=== PATIENT | male | born 1955 | race Caucasian/White ===

== ENCOUNTER 2020-02-28 17:02 | Outpatient (CLI) | payer MEDICARE, SELFPAY ==
--- NOTE | 2020-02-28 | MR_ITS ---
WS: [id number] MRI BRAIN WITHOUT CONTRAST HISTORY: UNUSUAL CHANGE IN BEHAVIOR COMPARISON: None available. TECHNIQUE: Diffusion imaging, multiplanar T1, T2 and FLAIR imaging obtained. On the diffusion sequences there is a linear area of increased signal in the LEFT prieto radiata and in the posterior RIGHT frontal lobe. Very minimal increased signal on the ADC mapping with increased signal on the FLAIR sequence. There is additional confluent and patchy T2 and FLAIR signal hyperinten sities surrounding the ventricles and extending into the centrum semiovale ovale. Prior lacunar infar ct in the RIGHT liliana. Additional smaller lacunar infarcts in the frontal lobes. Mild atrophy is symmetric bilaterally. Ventricles and extra-axial spaces are normal. No inferior displacement of cerebellar tonsils. The sella turcica and pituitary gland are unremarkabl e. Dural venous sinuses and seneca-c[place] of [place] demonstrate no abnormality on this unenhanced studies. Paranasal sinuses: Clear. Mastoid air cells: Normal. Calvarium and scalp: Intact. MR/MR head wo con* [id number] IMPRESSION: 1. LEFT centrum semiovale and posterior RIGHT frontal lobe diffusion-weighted abnormalities. ADC map signal is mildly increased. Findings suggest these are n ot acute and probably greater than a-week-old. Suspect these are subacute lacun ar infarcts. 2. Extensive white matter disease and prior lacunar lungs. Small lacune in th e RIGHT liliana. More than expected for the patient's age. Differentials to consid er are long-standing hypertension, vasculitis and demyelination.
== END 2020-02-28 17:03 | disposition home or self-care (01) ==
LOC: RADSHAW 17:11
PROVIDERS: PCP Nurse Practitioner Family; Visit Provider Nurse Practitioner Family
DX: R46.89 Other symptoms and signs involving appearance and behavior (principal); R90.82 White matter disease, unspecified
CPT/HCPCS: 70551

== ENCOUNTER → 2020-03-26 11:46 | Outpatient (BNVA) | payer MEDICARE, SELFPAY | PROVIDERS: PCP Nurse Practitioner Family; Referring Provider Nurse Practitioner Family; Visit Provider Nurse Practitioner | DX: I63.9 Cerebral infarction, unspecified (principal) | CPT/HCPCS: 96116; 99204 ==

== ENCOUNTER 2020-04-19 13:18 | Outpatient (CLI) | payer MEDICARE, SELFPAY ==
--- NOTE | 2020-04-19 13:30 | USCV_ITS ---
Marcell Magallon Age: 64 Gender: M : 1955 Exam Date: 04/19/2020 13:49 Ordering Phys: Alf CarlosP MSN AGACNP-BC Technologist: Baljit Fox [place] [facility] [place]: SOB DIZZY BP: 132 / 73 HR: 87 Rhythm: Sinus Technical Quality: Adequate MEASUREMENTS (Male / Female) Normal Values 2D ECHO LV Diastolic Diameter PLAX 4.5 cm 4.2 - 5.9 / 3.9 - 5.3 cm LV Systolic Diameter PLAX 2.7 cm IVS Diastolic Thickness 1.1 cm 0.6 - 1.0 / 0.6 - 0.9 cm IVS Systolic Thickness 1.4 cm LVPW Diastolic Thickness 1.1 cm 0.6 - 1.0 / 0.6 - 0.9 cm LVPW Systolic Thickness 1.5 cm LVOT Diameter 2.1 cm LV Ejection Fraction 2D Teich 70.4 % LV Ejection Fraction MOD 2C 55.4 % LV Ejection Fraction 2C AL 56.0 % LA Diameter 4.5 cm LA Width 4.0 cm LA Height 4.8 cm RA Width 3.6 cm RA Height 5.2 cm Aorta at Sinotubular Diameter 1.3 cm M-MODE LV Diastolic Diameter MM 4.4 cm 4.2 - 5.9 / 3.9 - 5.3 cm LV Systolic Diameter MM 2.2 cm LV Ejection Fraction MM Teich 82.5 % IVS Diastolic Thickness MM 0.9 cm 0.6 - 1.0 / 0.6 - 0.9 cm IVS Systolic Thickness MM 1.4 cm LVPW Diastolic Thickness MM 1.3 cm 0.6 - 1.0 / 0.6 - 0.9 cm LVPW Systolic Thickness MM 1.6 cm RV Diastolic Diameter MM 2.7 cm Aortic Annulus Diameter 4.1 cm LA Ao Ratio MM 1.1 MV E Point Septal Separation 0.9 cm DOPPLER AV Peak Velocity 108.0 cm/s LVOT Peak Velocity 87.0 cm/s AV Area Cont Eq vti 2.4 cm squared AV Area Cont Eq pk 2.8 cm squared MV Area PHT 5.0 cm squared Mitral E to A Ratio 1.1 MV E' Velocity 54.0 cm/s Mitral E to MV E' Ratio 11.1 Mitral E to LV E' Lateral Ratio 10.7 Mitral E to LV E' Septal Ratio 11.8 TR Peak Velocity 125.7 cm/s TR Peak Gradient 6.3 mmHg TV Peak E Velocity 120.0 cm/s Right Atrial Pressure 3.0 mmHg Pulmonary Artery Systolic Pressu 9.3 mmHg FINDINGS Left Ventricle Normal left ventricular size and systolic function, EF 62 %. No regional wall motion abnormalities. Grade I/IV diastolic dysfunction (abnormal relaxation filling pattern), normal to mildly elevated filling pressures. Right Ventricle Normal right ventricular size and systolic function. Right Atrium Normal right atrial size. Left Atrium Mildly increased left atrial size. Mitral Valve Mild mitral annular calcification. Thickened mitral valve. Aortic Valve No gross abnormalities noted Tricuspid Valve Not visualized well Pulmonic Valve Pulmonic valve not well visualized. Pericardium No pericardial effusion. Aorta Normal aortic annulus size. CONCLUSIONS Normal left ventricular size and systolic function, EF 62 %. No regional wall motion abnormalities. Type I diastolic dysfunction. Mildly increased left atrial size. Mild mitral annular calcification. Thickened mitral valve. There is no pericardial effusion. No previous study is available for comparison. Dr Nico Turner MD FACC (Electronically Signed) Final Date: 19 April 2020 19:41 S
== END 2020-04-19 13:19 | disposition home or self-care (01) ==
LOC: US 13:19
PROVIDERS: PCP Nurse Practitioner Family; Visit Provider Nurse Practitioner
DX: I63.9 Cerebral infarction, unspecified (principal); R06.02 Shortness of breath; R42 Dizziness and giddiness; I34.8 Other nonrheumatic mitral valve disorders; I50.30 Unspecified diastolic (congestive) heart failure
CPT/HCPCS: 93306

== ENCOUNTER 2020-07-12 20:00 | Outpatient (CLI) | payer MEDICARE, SELFPAY | END 2020-07-12 20:01 | disposition home or self-care (01) | LOC: SLEEP 07-13 08:55 | PROVIDERS: PCP Nurse Practitioner Family; Visit Provider Specialist | DX: G47.33 Obstructive sleep apnea (adult) (pediatric) (principal) | CPT/HCPCS: 95810 ==

== ENCOUNTER → 2020-08-20 11:28 | Outpatient (BNVA) | payer MEDICARE, SELFPAY | PROVIDERS: PCP Nurse Practitioner Family; Visit Provider Nurse Practitioner | DX: I67.2 Cerebral atherosclerosis (principal); Z87.891 Personal history of nicotine dependence; I69.811 Memory deficit following other cerebrovascular disease | CPT/HCPCS: 99213; 99214 ==

== ENCOUNTER 2020-08-23 20:00 | Outpatient (CLI) | payer MEDICARE, SELFPAY | END 2020-08-23 20:01 | disposition home or self-care (01) | LOC: SLEEP 08-24 08:26 | PROVIDERS: PCP Nurse Practitioner Family; Visit Provider Specialist | DX: G47.33 Obstructive sleep apnea (adult) (pediatric) (principal) | CPT/HCPCS: 95811 ==

== ENCOUNTER 2021-06-18 08:13 | Outpatient (CLI) | payer MEDICARE, SELFPAY ==
[2021-06-18 08:30] VITALS: BMI 34.0
--- NOTE | 2021-06-18 08:31 | ECG_ITS ---
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 Interpretive Statements NAME OF STUDY: LEXISCAN SESTAMIBI STRESS TEST INDICATION: Shortness of Breath, PROCEDURE: At the baseline, the EKG revealed normal sinus rhythm with poor R wave progression. Possible old anteroseptal wall [place]. Nonspecific ST-T changes. The baseline blood pressure was 138/68 mm Hg with a heart rate of 78 beats/min. Lexiscan was infused over a period of 20 seconds. A total of 0.4 milligrams of Lexiscan was infused. The stress phase was continued for a total of 5 minutes. Heart rate at the end of the stress phase was 92 with a blood pressure 141/60. The EKG at the peak infusion revealed no significant changes. Sestamibi was injected 20 seconds after the Lexiscan infusion. Blood pressure at the end of the recovery phase was 141/61 with a heart rate of 93 per minute. CONCLUSION: 1. No significant EKG changes with the LexiScan infusion 2. No LexiScan induced chest pain or cardiac arrhythmia 3. Normal blood pressure and heart rate response 4. Sestamibi/sestamibi perfusion scan pending; see separate report. Electronically Signed On 06-23-2021 19:29:48 SPACE OFFICER by Nico Turner M.D. [id number]
--- NOTE | 2021-06-18 08:34 | NMCV_ITS ---
NM charles perf SPECT r/s* [id number] Marcell Magallon Age: 65 Gender: M : 1955 Exam Date: 06/18/2021 08:34 Ordering Phys: Nico Turner MD ([email or web address]) Technologist: NAVEEN Gil Exam Location: [facility] [place] Indications: SHORTNESS OF BREATH STRESS TEST Please see separate stress test report in [facility] for full findings IMAGE PROTOCOL Rest/Stress 1 Lexiscan Day Radiopharmaceutical Dose (mCi) Administration Site Administered by Rest: Tc-99m 10.9 IV NAVEEN Phipps Sestamibi Stress:Tc-99m 33.0 IV NAVEEN Phipps Sestamibi Rest: 18-Jun-2021 60 Discovery 630 Stress: 18-Jun-2021 30 Discovery 630 0.4mg Lexiscan. Supine position only as patient was unable to lay prone. SPECT RESULTS Technical Quality: Excellent Raw Data Analysis: Normal Image Corrections: No attenuation or motion correction applied Summed Stress Score: 4 Summed Rest Score: 0 Summed Difference Score: 4 PERFUSION FINDINGS Small to moderate area of slightly decreased visibility in the mid and apical inferior, mid inferolateral and apical lateral regions. Some reversibility was noted in these regions. FUNCTIONAL RESULTS (calculated via Gated SPECT) Stress Image LV EF (%): 84 Stress EDV (mL):75 TID: 0.82 Stress ESV (mL):12 FUNCTIONAL FINDINGS: Segmental wall motion analysis revealing no gross wall motion abnormalities IMPRESSIONS 1. Myocardial perfusion imaging revealing small to moderate area of slightly decreased tracer uptake in the inferior and inferolateral regions with some reversibility, suggestive of myocardial scarring with ischemia in the distribution of the right coronary artery/left circumflex artery. The ischemic burden was found to be 3% of the total myocardium. 2. Normal LV ejection fraction of 84%. 3. LV wall motion analysis revealing no gross wall motion normalities 4. Normal LV volume No similar studies are available for comparison Dr Nico Turner MD FAC (Electronically Signed) Final Date: 20 June 2021 00:44 S
[2021-06-18] MEDS: regadenoson 0.4 Mg/5 ml Syringe IVP (09:15)
[2021-06-18 10:22] VITALS: BP 141/61; PULSE 93
== END 2021-06-18 08:14 | disposition home or self-care (01) ==
LOC: CDL 08:19
PROVIDERS: PCP Nurse Practitioner Family; Visit Provider Internal Medicine Cardiovascular Disease
DX: R06.02 Shortness of breath (principal); R53.83 Other fatigue
CPT/HCPCS: 78452; 93017; A9500; J2785

== ENCOUNTER 2021-07-03 14:38 | Emergency (ER) | payer MEDICARE, SELFPAY ==
[2021-07-03 14:50] VITALS: BP 131/71; PULSE 107; RESP 18; TEMP 37.4; O2SAT 97; BMI 32.5
[2021-07-03 14:50] LABS: Glucose Point of Care 339 mg/dL (70-110)
--- NOTE | 2021-07-03 14:56 | CT_ITS ---
WS: [id number] CT HEAD NONCONTRAST HISTORY: AMS TECHNIQUE: Contiguous axial imaging performed through the brain in 2.5 mm imaging. Bone and soft tiss ue windows. Sagittal and coronal reformats reviewed. All CT scans at [facility] use at least one of these dose optimization techniques: automated exposure control; mA and/or kV adjustment per pa tient size (includes targeted exams where dose is matched to clinical indication); or iterative recon struction. DLP: 921.42 mGy.cm COMPARISON: None available. No acute intracranial hemorrhage, midline shift or mass effect. Mild atrophy and moderate chronic microvascular ischemic disease. No sulcal effacement. Ventricles: Normal size with no hydrocephalus. No inferior displacement of cerebellar tonsils. Paranasal sinuses: As visualized are clear. Mastoid air cells: Well pneumatized. Calvarium and scalp: Skull is intact with no soft tissue edema or swelling. CT/CT head wo con* [id number] IMPRESSION: 1. No acute intracranial hemorrhage or edema. 2. Moderate chronic microvascular ischemic disease.
--- NOTE | 2021-07-03 14:56 | XR_ITS ---
WS: [id number] Portable AP upright chest, 07/03/2021 Clinical Data: AMS Comparison: None. Findings: No nodules, masses or effusions are seen. The heart is normal. The pulmonary vascularity is not increased. No pneumonia or pneumothorax is seen. The aortic arch and descending thoracic aorta s how calcification and tortuosity. Midline sternotomy sutures and mediastinal surgical tabs are presen t. XR/XR chest 1V portable [id number] Impression: Atherosclerosis.
[2021-07-03 16:51] LABS: Basophils % 0.5 %; Eosinophils % 0.3 %; Hematocrit 39.3 % (42.0-52.0); Hemoglobin 12.3 g/dL (11.7-16.6); Lymphocytes # 0.6 10^3/uL (0.8-4.8); Lymphocytes % 15.7 %; Mean Corpuscular HGB Conc 31.3 g/dL (30.0-36.0); Mean Corpuscular Hemoglobin 25.1 pg (28.0-34.0); Mean Corpuscular Volume 80.2 fl (80-94); Mean Platelet Volume 9.1 fL (7.4-10.4); Monocytes # 0.6 10^3/uL (0.2-0.9); Monocytes % 14.9 %; Neutrophils # 2.69 10^3/uL (1.8-7.7); Neutrophils % 68.1 %; Nucleated Red Blood Cells % 0 %; Platelet Count 173 10^3/cmm (130-400); Red Cell Distribution Width 14.2 % (12.1-15.1)
[2021-07-03 17:20] LABS: Alanine Aminotransferase 10 U/L (0-41); Albumin Level 3.8 g/dL (3.5-5.2); Alkaline Phosphatase 81 IU/L (40-130); Anion Gap 19.1 (5-19); Aspartate Amino Transferase 14 U/L (0-40); Blood Urea Nitrogen 13 mg/dL (8-23); Calcium 9.2 mg/dL (8.5-10.5); Carbon Dioxide 23 mmol/L (22-29); Chloride 94 mmol/L (98-107); Creatinine Clr Calc Pharmacy 104.3494; Globulin 3.2 g/dL (1.3-4.6); Glomerular Filtration Rate 112.5 mL/min (90-130); Glucose 287 mg/dL (65-115); Osmolality Calculated 285 mOsm/kg (285-295); Potassium 4.1 mmol/L (3.5-5.1); Sodium 132 mmol/L (136-145); Total Bilirubin 0.3 mg/dL (0.15-1.2)
[2021-07-03 18:48] LABS: Ketone (Acetest) Serum Negative (Negative)
[2021-07-03 20:19] LABS: Amphetamines Screen Urine Negative (Negative); Barbiturates Screen Urine Negative (Negative); Benzodiazepines Screen Urine Negative (Negative); Cocaine Screen Urine Negative (Negative); Opiate Screen Urine Negative (Negative); PCP Screen Urine Negative (Negative); THC Screen Urine Negative (Negative)
[2021-07-03 20:28] LABS: Urine Appearance Clear (CLEAR); Urine Color Straw (Yellow); pH Urine 5 (5-7)
[2021-07-03 20:29] LABS: Add Urine Microscopic? YES; Bilirubin Urine 1+ (Negative); Blood Urine 2+ (Negative); Glucose Urine UA 4+ (Normal); Ketones Urine 2+ (Negative); Leukocyte Esterase Urine Negative (Negative); Nitrate Urine Negative (Negative); Protein Urine 3+ (Negative); Specific Gravity, Urine 1.025 (1.005-1.030); Urobilinogen Urine Norm (Negative)
[2021-07-03 20:30] LABS: Add Urine Culture? No; Bacteria Urine 1+ /hpf; Hyaline Casts Urine 0-4 /lpf; Mucus Urine 1+ /hpf; RBC Urine 0-4 /hpf (0-2)
--- NOTE | 2021-07-03 22:50 | PC.NURSE ---
Not in WR @ 1801 - LWBS
== END 2021-07-03 21:30 | disposition left against medical advice (07) ==
PROVIDERS: Physician Assistant; Emergency Provider Family Medicine; PCP Nurse Practitioner Family
DX: Z53.21 Procedure and treatment not carried out due to patient leaving prior to being seen by health care provider (principal)
CPT/HCPCS: 36416; 70450; 71045; 80053; 80306; 81001; 82009; 82962; 83605; 85025; 87040; 99282

== ENCOUNTER 2021-07-29 16:23 | Observation (INO) | payer MEDICARE, SELFPAY ==
[2021-07-29 17:48] VITALS: BP 180/91; PULSE 123; RESP 18; TEMP 36.7; O2SAT 98; BMI 31.0
--- NOTE | 2021-07-29 18:04 | CTR_ITS ---
PROCEDURE INFORMATION: Exam: CT Head Without Contrast Exam date and time: 07/29/2021 6:04 PM Age: 66 years old Clinical indication: Pain; Headache; Additional info: AMS TECHNIQUE: Imaging protocol: Computed tomography of the head without contrast. Radiation optimization: All CT scans at this facility use at least one of these dose optimization techniques: automated exposure control; mA and/or kV adjustment per patient size (includes targeted exams where dose is matched to clinical indication); or iterative reconstruction. COMPARISON: CT head wo con* [id number] 07/03/2021 3:15 PM RADIATION DOSE METRICS: Total DLP (mGy-cm): 958.57 FINDINGS: Brain: No hemorrhage. Advanced diffuse cerebral atrophy and sequela of chronic small vessel ischemic disease. No mass effect. Cerebral ventricles: No ventriculomegaly. Paranasal sinuses: Opacified ethmoid sinuses. Mucosal thickening with fluid levels in the maxillary sinuses. Mastoid air cells: Visualized mastoid air cells are well aerated. Bones/joints: Unremarkable. No acute fracture. Soft tissues: Unremarkable. CT/CT head wo con* [id number] IMPRESSION: 1. No acute intracranial abnormality. 2. Multifocal sinusitis. 3. Advanced diffuse cerebral atrophy and sequela of chronic small vessel ischemic disease.
--- NOTE | 2021-07-29 18:04 | ECG_ITS ---
[facility] Test Date: 2021-07-29 Pat Name: Marcell Magallon Department: Room: Gender: Male Lath Hand: : 1955 Requested By: Krystian Cuenca Order Number: [id number] Reading MD: JENNIFER CHAVEZ Measurements Intervals [place] Rate: 126 P: 62 NE: 165 QRS: 82 QRSD: 67 T: 90 QT: 310 QTc: 449 Interpretive Statements SINUS TACHYCARDIA LOW QRS VOLTAGE IN PRECORDIAL LEADS [QRS DEFLECTION < 1.0 mV IN CHEST LEADS] POSSIBLE ANTERIOR MYOCARDIAL INFARCTION , PROBABLY OLD [30 ms Q WAVE IN V3/V4, OR R < 0.2 mV IN V4] ABNORMAL RHYTHM ECG No previous ECG available for comparison Electronically Signed On 07-29-2021 19:49:20 MACHINE LOAD CLERK by JENNIFER CHAVEZ [id number]
--- NOTE | 2021-07-29 18:04 | XRR_ITS ---
PROCEDURE INFORMATION: Exam: XR Chest Exam date and time: 07/29/2021 6:04 PM Age: 66 years old Clinical indication: Cough; Additional info: AMS TECHNIQUE: Imaging protocol: XR of the chest. Views: 1 view. COMPARISON: CR XR chest 1V portable [id number] 07/03/2021 3:17 PM FINDINGS: Lungs: No consolidation. Pleural spaces: No pleural effusion. No pneumothorax. Heart/Mediastinum: No cardiomegaly. Bones/joints: Sternotomy wires and plates noted. Visualized osseous structures are intact. XR/XR chest 1V portable [id number] IMPRESSION: No acute findings.
--- NOTE | 2021-07-29 19:38 | ED_ITS ---
HPI - Altered Mental Status General: Chief Complaint: Altered Mental Status Stated Complaint: stoke symptoms Time Seen by Provider: 07/29/21 19:19 Source: patient and family Mode of arrival: ambulatory Limitations: no limitations History of Present Illness: 66-year-old male that states of last 2 weeks he has been having increasing confusion along with weakness. She states he is got nowhere he is not able to ambulate he had been extremely ataxic per her and has not been able to walk over the last 2 days he has had a slight facial droop to the left as well. She states that he is not been taking his medications but having some hyperglycemia he states he just does not feel well and is weak she states that he gets confused at times he does answer my questions appropriately but is extremely weak. Associated symptoms: Deny depression Review of Systems Const: Denies: fever(s), chills, body aches or change in appetite Eyes: Denies: blurry vision or eye discomfort ENMT: Denies: throat pain or dental pain Card: Denies: chest pain Resp: Denies: dyspnea GI: Denies: abdominal pain, nausea, vomiting or diarrhea : Denies: dysuria Musc: Denies: neck pain or back pain Skin/Breast: Denies: rash Neuro: Reports: weakness in extremities and difficulty walking; Denies: headache(s) Psych: Denies: depression Robby/Lymph: Denies: easy bruising All/Imm: Denies: urticaria PFSH ED PFSH: Medical History Cerebral atherosclerosis CVA (cerebral vascular accident) 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 Vascular dementia Family History Brother Diabetes Mother Diabetes Cancer Father Stroke Suicide Grandmother Dementia Grandfather Diabetes Denies family history of CAD (coronary artery disease) Clotting disorder Chronic kidney disease (CKD) Anesthesia complication Bleeding disorder Lung disease Social History Smoking and tobacco status: former smoker Alcohol intake: never History of recent travel: No Physical Exam Const: COMMON NORMALS: negative for patient oriented x3 EXAM LIMITATIONS: altered mental status GENERAL APPEARANCE: ill appearing ORIENTATION/CONSCIOUSNESS: Yes oriented to person; not oriented to place and not oriented to time HENMT: COMMON NORMALS: normocephalic and atraumatic HEAD & SCALP: normocephalic and atraumatic Eye: COMMON NORMALS: Equal, round and reactive pupils present and EOMs intact bilaterally PUPIL: Yes Equal, round and reactive pupils present Neck/C-Spine: COMMON NORMALS: full ROM and supple Chest: COMMONS NORMALS: normal inspection of the chest and normal palpation of entire chest wall Resp: COMMON NORMALS: normal respiratory effort, No retractions, No use of accessory muscles and clear to auscultation bilaterally AUSCULTATION: clear to auscultation bilaterally Cardio: COMMON NORMALS: regular rate, regular rhythm and No murmurs present (Cardio) RATE: regular rate RHYTHM: regular rhythm GI: COMMON NORMALS: Normal to inspection, nondistended, normoactive bowel sounds present, Soft to palpation, non-tender and no masses PALPATION: Yes Soft to palpation Extremity: COMMON NORMALS: normal to inspection and full ROM Neuro: COMMON NORMALS: no focal motor deficits; negative for patient oriented x3 SENSORIUM/ORIENTATION: Yes oriented to person, No oriented to place and No oriented to time OTHER: Extremely weak not able to ambulate does have a slight left-sided facial droop. No decrease in sensation no aphasia some confusion noted Psych: COMMON NORMALS: Normal thought process present and cooperative; negative for mental status grossly normal THOUGHT PROCESS: Normal thought process present Skin: COMMON NORMALS: no rashes or lesions noted and no wounds GENERAL SKIN EXAM: no rashes or lesions noted Course Vital Signs: Vital signs: Vital Signs Temperature 98.0 F 07/29/21 17:48 Pulse Rate 128 H 07/29/21 19:56 Respiratory Rate 18 07/29/21 17:48 Blood Pressure 157/86 07/29/21 19:56 Pulse Oximetry 99 07/29/21 19:56 MDM - Altered Mental Status Medical Decision Making Patient presents here with altered mental status along with weakness he is not able to walk here due to his weakness. He is confused can't tell me with the year is he was originally noncompliant but I was able to talk to him and IVs and give him some Ativan to calm his nerves head CT shows no acute abnormalities he is hyperglycemic likely due to noncompliant spoke to hospitalist will admit. Lab Data : 07/29/21 21:57 07/29/21 21:57 Radiology Impressions Chest X-Ray 07/29/21 18:04 IMPRESSION: No acute findings. Head CT 07/29/21 18:04 IMPRESSION: 1. No acute intracranial abnormality. 2. Multifocal sinusitis. 3. Advanced diffuse cerebral atrophy and sequela of chronic small vessel ischemic disease. Laboratory Results WBC 10.5 10^3/uL (4.0-10.0) H 07/29/21 21:57 RBC 4.45 10^6/uL (4.1-5.3) 07/29/21 21:57 Hgb 11.0 g/dL (11.7-16.6) L 07/29/21 21:57 Hct 34.3 % (42.0-52.0) L 07/29/21 21:57 MCV 77.1 fl (80-94) L 07/29/21 21:57 MCH 24.7 pg (28.0-34.0) L 07/29/21 21:57 MCHC 32.1 g/dL (30.0-36.0) 07/29/21 21:57 RDW 14.6 % (12.1-15.1) 07/29/21 21:57 Plt Count 299 10^3/cmm (130-400) 07/29/21 21:57 MPV 9.2 fL (7.4-10.4) 07/29/21 21:57 Neut % (Auto) 78.4 % 07/29/21 21:57 Lymph % (Auto) 10.5 % 07/29/21 21:57 Curry % (Auto) 8.6 % 07/29/21 21:57 Eos % (Auto) 1.0 % 07/29/21 21:57 Baso % (Auto) 0.5 % 07/29/21 21:57 Neut # (Auto) 8.26 10^3/uL (1.8-7.7) H 07/29/21 21:57 Lymph # (Auto) 1.1 10^3/uL (0.8-4.8) 07/29/21 21:57 Curry # (Auto) 0.9 10^3/uL (0.2-0.9) 07/29/21 21:57 Eos # (Auto) 0.1 10^3/uL (0.0-0.8) 07/29/21 21:57 Baso # (Auto) 0.1 10^3/uL (0.0-0.1) 07/29/21 21:57 Nucleated RBC % (auto) 0 % 07/29/21 21:57 Nucleated RBCs # 0.0 /100WBC 07/29/21 21:57 PT 14.10 SECONDS (12.1-14.9) 07/29/21 21:57 INR 1.05 (0.8-1.2) 07/29/21 21:57 Specimen Type Arterial 07/29/21 20:24 Sample Site Radial, left 07/29/21 20:24 ABG pH 7.53 (7.35-7.45) H 07/29/21 20:24 ABG pCO2 30.1 mmHg (35-45) L 07/29/21 20:24 ABG pO2 84.1 mmHg (80.0-100.0) 07/29/21 20:24 ABG HCO3 24.9 mmol/L (22-26) 07/29/21 20:24 ABG Base Excess 2.7 mmol/L (-2.0-2.0) H 07/29/21 20:24 Elijah Test Pos 07/29/21 20:24 Hematocrit 36.8 % (42-52) L 07/29/21 20:24 O2 Delivery Device Room air 07/29/21 20:24 FiO2 21.0 % 07/29/21 20:24 Air Liaison And Special Staff ID Buttr 07/29/21 20:24 Sodium 130 mmol/L (136-145) L 07/29/21 21:57 Potassium 4.3 mmol/L (3.5-5.1) 07/29/21 21:57 Chloride 96 mmol/L (98-107) L 07/29/21 21:57 Carbon Dioxide 22 mmol/L (22-29) 07/29/21 21:57 Anion Gap 16.3 (5-19) 07/29/21 21:57 BUN 19 mg/dL (8-23) 07/29/21 21:57 Creatinine 0.7 mg/dL (0.7-1.2) 07/29/21 21:57 GFR Calculation 112.5 mL/min (90-130) 07/29/21 21:57 Glucose 366 mg/dL (65-115) H 07/29/21 21:57 POC Glucose 417 mg/dL (70-110) H 07/29/21 22:52 Calculated Osmolality 287 mOsm/kg (285-295) 07/29/21 21:57 Lactate 1.3 mmol/L (0.5-2.2) 07/29/21 21:57 Calcium 8.4 mg/dL (8.5-10.5) L 07/29/21 21:57 Total Bilirubin 0.3 mg/dL (0.15-1.2) 07/29/21 21:57 AST 11 U/L (0-40) 07/29/21 21:57 ALT 7 U/L (0-41) 07/29/21 21:57 Alkaline Phosphatase 92 IU/L (40-130) 07/29/21 21:57 Ammonia 13 umol/L (16-60) L 07/29/21 21:57 Troponin T Baseline 22 ng/L (0-15) H 07/29/21 21:57 Total Protein 6.4 g/dL (6.6-8.7) L 07/29/21 21:57 Albumin 3.2 g/dL (3.5-5.2) L 07/29/21 21:57 Globulin 3.2 g/dL (1.3-4.6) 07/29/21 21:57 TSH 2.79 uIU/mL (0.27-4.20) 07/29/21 21:57 SARS-CoV-2 Ag (Rapid) Negative (Negative) 07/29/21 20:[address] Head: I personally reviewed and interpreted this imaging study as follows: Radiologist's impression: IMPRESSION: 1. No acute intracranial abnormality. 2. Multifocal sinusitis. 3. Advanced diffuse cerebral atrophy and sequela of chronic small vessel ischemic disease. CXR: I personally reviewed and interpreted this imaging study as follows: Radiologist's impression: XR/XR chest 1V portable [id number] IMPRESSION: No acute findings. EKG Data EKG 1: I personally reviewed and interpreted this EKG as follows: EKG interpretation date: 07/29/21 EKG interpretation time: 17:59 Interpretation: sinus tach hr [address] or t wave abnormalities qrs 67 qtc 385 EKG 2: I personally reviewed and interpreted this EKG as follows: EKG interpretation date: 07/29/21 EKG interpretation time: 20:14 Interpretation: sinus tach hr [address] or t wave abnormalities qrs 82 qtc 390 Discharge Plan Discharge Patient Disposition: Admitted As Inpatient Clinical Impression: Altered mental status, Generalized weakness Condition: Stable Prescriptions: No Action ciprofloxacin HCl 250 mg tablet 250 mg PO BID Qty: 10 0RF losartan-hydrochlorothiazide 100-25 mg tablet 1 tab PO DAILY 0RF aspirin [Adult Aspirin Regimen] 81 mg tablet,delayed release (DR/EC) 81 mg PO DAILY Qty: 30 3RF Lantus U-100 Insulin 100 unit/mL solution 55 unit SUBCUT DAILY 0RF sertraline 50 mg tablet 150 mg PO DAILY 0RF ferrous sulfate 325 mg (65 mg iron) tablet,delayed release (DR/EC) 325 mg PO DAILY 0RF nitroglycerin 0.4 mg tablet, sublingual 0.4 mg sublingual Q5M PRN (Reason: chest pain) 0RF simvastatin 40 mg tablet 40 mg PO DAILY 0RF cholecalciferol (vitamin D3) 25 mcg (1,000 unit) capsule 25 mcg PO DAILY 0RF metformin 500 mg tablet extended release 24 hr 1,000 mg PO BID 0RF carvedilol 12.5 mg tablet 12.5 mg PO BID 30 Days Qty: 60 0RF Rx Instructions: must administer with a meal/food Referrals: STEPHANIE Del Toro, ENGLISH AND READING INSTRUCTOR [Primary Care Provider] - Coding Level of Care Code ED Reporting Consultant for Chg Fwd Exam Comprehensive
[2021-07-29 19:56] VITALS: BP 157/86; PULSE 128; O2SAT 99
--- NOTE | 2021-07-29 20:04 | ECG_ITS ---
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 Measurements Intervals [place] Rate: 126 P: 68 ID: [id number] QRS: 98 QRSD: 82 T: -9 QT: 315 QTc: 457 Interpretive Statements SINUS TACHYCARDIA BORDERLINE RIGHT AXIS DEVIATION [QRS AXIS > 90] LOW QRS VOLTAGE IN PRECORDIAL LEADS [QRS DEFLECTION < 1.0 mV IN CHEST LEADS] POSSIBLE RIGHT VENTRICULAR CONDUCTION DELAY [RSR (QR) IN V1/V2] POSSIBLE ANTERIOR MYOCARDIAL INFARCTION , PROBABLY OLD [30 ms Q WAVE IN V3/V4, OR R < 0.2 mV IN V4] ABNORMAL RHYTHM ECG Compared to ECG 07/29/2021 17:59:52 No significant changes Electronically Signed On 07-30-2021 17:13:32 UX DESIGN LEAD by Selma Ardon M.D. [id number]
[2021-07-29 20:23] LABS: Glucose Point of Care 418 mg/dL (70-110)
[2021-07-29 20:35] LABS: ABG PCO2 30.1 mmHg (35-45); ABG PH Result 7.53 (7.35-7.45); Arterial Blood Gas Hematocrit 36.8 % (42-52); Base Excess ABG 2.7 mmol/L (-2.0-2.0); Blood Gas Allen Test Pos; Blood Gas Sample Site Radial, left; Blood Gas Sample Type Arterial; HCO3 ABG 24.9 mmol/L (22-26); Oxygen Device ROOM AIR; PO2 ABG 84.1 mmHg (80.0-100.0)
[2021-07-29 21:16] LABS: SARS Covid-2 Antigen Negative (Negative)
[2021-07-29] MEDS: insulin regular-human 100 units/1 mL 10 UNIT IVP (22:00)
[2021-07-29] MEDS: LORazepam 2 mg/mL INJ 1 mL 1 MG IM (22:00)
[2021-07-29 22:02] LABS: Basophils # 0.1 10^3/uL (0.0-0.1); Basophils % 0.5 %; Eosinophils # 0.1 10^3/uL (0.0-0.8); Hematocrit 34.3 % (42.0-52.0); Lymphocytes # 1.1 10^3/uL (0.8-4.8); Lymphocytes % 10.5 %; Mean Corpuscular HGB Conc 32.1 g/dL (30.0-36.0); Mean Corpuscular Hemoglobin 24.7 pg (28.0-34.0); Mean Corpuscular Volume 77.1 fl (80-94); Mean Platelet Volume 9.2 fL (7.4-10.4); Monocytes # 0.9 10^3/uL (0.2-0.9); Monocytes % 8.6 %; Neutrophils # 8.26 10^3/uL (1.8-7.7); Neutrophils % 78.4 %; Nucleated Red Blood Cells % 0 %; Platelet Count 299 10^3/cmm (130-400); Red Blood Count 4.45 10^6/uL (4.1-5.3); Red Cell Distribution Width 14.6 % (12.1-15.1); White Blood Count 10.5 10^3/uL (4.0-10.0)
[2021-07-29 22:18] LABS: INR 1.05 (0.8-1.2)
[2021-07-29 22:22] LABS: Ammonia 13 umol/L (16-60); Lactate (Lactic Acid level) 1.3 mmol/L (0.5-2.2)
[2021-07-29 22:32] LABS: Troponin(5th) Baseline 22 ng/L (0-15)
[2021-07-29 22:39] LABS: Alanine Aminotransferase 7 U/L (0-41); Albumin Level 3.2 g/dL (3.5-5.2); Alkaline Phosphatase 92 IU/L (40-130); Anion Gap 16.3 (5-19); Aspartate Amino Transferase 11 U/L (0-40); Blood Urea Nitrogen 19 mg/dL (8-23); Calcium 8.4 mg/dL (8.5-10.5); Carbon Dioxide 22 mmol/L (22-29); Chloride 96 mmol/L (98-107); Globulin 3.2 g/dL (1.3-4.6); Glomerular Filtration Rate 112.5 mL/min (90-130); Glucose 366 mg/dL (65-115); Osmolality Calculated 287 mOsm/kg (285-295); Potassium 4.3 mmol/L (3.5-5.1); Sodium 130 mmol/L (136-145); Thyroid Stimulating Hormone 2.79 uIU/mL (0.27-4.20); Total Bilirubin 0.3 mg/dL (0.15-1.2); Total Protein 6.4 g/dL (6.6-8.7)
[2021-07-29 22:56] LABS: Glucose Point of Care 417 mg/dL (70-110)
[2021-07-29] MEDS: insulin regular-human 100 units/1 mL 5 UNIT IVP (23:05)
[2021-07-30] VITALS (7 sets, daily range): BP systolic 120–160; BP diastolic 68–79; PULSE 69–119; RESP 18–20; TEMP 36.7–37.1; O2SAT 93–97; BMI 31.0
--- NOTE | 2021-07-30 00:04 | ECG_ITS ---
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 Measurements Intervals [place] Rate: 121 P: 69 UT: 156 QRS: 74 QRSD: 84 T: 72 QT: 424 QTc: 603 Interpretive Statements SINUS TACHYCARDIA WITH FREQUENT SUPRAVENTRICULAR PREMATURE COMPLEXES LOW QRS VOLTAGE IN PRECORDIAL LEADS [QRS DEFLECTION < 1.0 mV IN CHEST LEADS] ANTERIOR MYOCARDIAL INFARCTION , PROBABLY OLD [40+ ms Q WAVE AND/OR ST/T ABNORMALITY IN V3/V4] Compared to ECG 07/29/2021 20:14:30 No significant changes Electronically Signed On 07-31-2021 7:07:49 ADVANCED REGISTERED NURSE by Selma Ardon M.D. [email or web address] [id number]
[2021-07-30 00:06] LABS: Troponin 5 2HR 22.17 ng/L (0-15)
[2021-07-30 00:08] LABS: Troponin 5 2HR Delta 0.17 ABS# (0-10)
[2021-07-30] MEDS: sodium chloride 0.9% 500 ML 999 ML IV (00:15)
--- NOTE | 2021-07-30 00:21 | P.HP_ITS ---
Providers/Chief Complaint Primary Care Provider: KIAN Swartz Chief Complaint: stoke symptoms History of Present Illness Marcell Magallon is a 66 year old male past medical history of hypertension coronary artery disease status post CABG, diabetes, cva, advanced dementia, was brought in with chief complaint of generalized weakness, worsening mentation and confusion, at baseline he is aware of self and place, currently he is aware of s elf, going on for the last 2 weeks, progressively worsened since then, in the last 2 days he has also had difficulty with ambulation, also reports he had a fall yesterday, as he was having difficulty with ambulation. Upon arrival in the ER he was worked up for above-mentioned complaint. Pertinent imaging studies: CT head wo con: No acute intracranial abnormality. Advanced diffuse cerebral atrophy and sequela of chronic small vessel ischemic disease. X-ray chest: No acute findings. EKG: SINUS TACHYCARDIA WITH FREQUENT SUPRAVENTRICULAR PREMATURE COMPLEXES LOW QRS VOLTAGE IN PRECORDIAL LEADS. Review of Systems General: Reports: 10 or more systems reviewed and unremarkable except in HPI and below Narrative: 67-year-old currently not in acute distress being admitted for chest pain evaluation Const: Reports: change in appetite; Denies: fever(s), chills, body aches or diaphoresis Card: Denies: edema, swelling of feet/ankles, dyspnea on exertion, orthopnea or leg pain with exertion Resp: Denies: dyspnea, productive cough, wheezing or pain on inspiration GI: Denies: abdominal pain, nausea, vomiting, diarrhea or constipation : Denies: flank pain or difficulty urinating Musc: Denies: back pain, extremity pain or extremity swelling Neuro: Reports: difficulty walking and confusion; Denies: headache(s) Medications/Allergies Home Medications Medication Instructions Recorded Confirmed Last Taken Type aspirin 81 mg tablet,delayed 81 mg PO DAILY #30 tab 03/26/20 05/21/21 Unknown Rx release (Adult Aspirin Regimen) losartan 100 1 tab PO DAILY 03/26/20 05/21/21 Unknown History mg-hydrochlorothiazide 25 mg tablet cholecalciferol (vitamin D3) 25 25 mcg PO DAILY 05/21/21 05/21/21 Unknown History mcg (1,000 unit) capsule ferrous sulfate 325 mg (65 mg 325 mg PO DAILY 05/21/21 05/21/21 Unknown History iron) tablet,delayed release insulin glargine 100 unit/mL 55 unit SUBCUT DAILY ml 05/21/21 05/21/21 Unknown History subcutaneous solution (Lantus U-100 Insulin) nitroglycerin 0.4 mg sublingual 0.4 mg SUBLINGUAL Q5M PRN tab 05/21/21 05/21/21 Unknown History tablet sertraline 50 mg tablet 150 mg PO DAILY tab 05/21/21 05/21/21 Unknown History simvastatin 40 mg tablet 40 mg PO DAILY tab 05/21/21 05/21/21 Unknown History carvedilol 12.5 mg tablet 12.5 mg PO BID 30 Days #60 tab 05/28/21 05/28/21 Unknown Rx ciprofloxacin HCl 250 mg tablet 250 mg PO BID #10 tab 05/28/21 05/30/21 Unknown Rx metformin 500 mg tablet,extended 1,000 mg PO BID tab 05/28/21 05/28/21 Unknown History release 24 hr Allergies Allergy/AdvReac Type Severity Reaction Status Date / Time No Known Allergies Allergy Verified 07/03/21 14:50 PFSH Acute PFSH: Medical History Cerebral atherosclerosis CVA (cerebral vascular accident) 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 Vascular dementia Family History Brother Diabetes Mother Diabetes Cancer Father Stroke Suicide Grandmother Dementia Grandfather Diabetes Denies family history of CAD (coronary artery disease) Clotting disorder Chronic kidney disease (CKD) Anesthesia complication Bleeding disorder Lung disease Social History Smoking and tobacco status: former smoker Alcohol intake: never History of recent travel: No Vitals/I&O/Wt Last Vital Signs Temp 98.0 F 07/29/21 17:48 Pulse 128 H 07/29/21 19:56 Resp 18 07/29/21 17:48 BP 157/86 07/29/21 19:56 Pulse Ox 99 07/29/21 19:56 Weight last 48 hrs Weight 95.254 kg Physical Exam Const: COMMON NORMALS: patient oriented x3 (AO*1 to self ) HENMT: HEAD & SCALP: normocephalic and atraumatic Eye: COMMON NORMALS: no scleral icterus GENERAL EYE: appearance normal, both eyes and all related structures Chest: COMMONS NORMALS: normal inspection of the chest and normal palpation of entire chest wall CHEST: Yes Symmetrical chest wall rise Resp: COMMON NORMALS: normal respiratory effort, No retractions, No use of accessory muscles and clear to auscultation bilaterally EFFORT & INSPECTION: Yes symmetric chest movement AUSCULTATION: clear to auscultation bilaterally Cardio: COMMON NORMALS: regular rate, regular rhythm, S1 normal heart sound present, S2 normal heart sound present, No gallops present (Cardio), No murmurs present (Cardio), No rub (Cardio) and Peripheral pulses 2+ throughout RATE: regular rate RHYTHM: regular rhythm HEART SOUNDS: S1 normal heart sound present and S2 normal heart sound present PERIPHERAL PULSES: Peripheral pulses 2+ throughout GI: COMMON NORMALS: Normal to inspection, nondistended, normoactive bowel sounds present, Soft to palpation, non-tender, No hepatosplenomegaly present and no masses AUSCULTATION: Yes normoactive bowel sounds PALPATION: Yes Soft to palpation and Yes No hepatosplenomegaly present RECTAL EXAM: Yes deferred Extremity: COMMON NORMALS: no clubbing, cyanosis or edema and no pedal edema Neuro: COMMON NORMALS: patient oriented x3 Data : 07/30/21 05:08 07/30/21 05:08 A&P Assessment and plan (1) Altered mental status: Status: Acute (2) Generalized weakness: Status: Acute (3) Obstructive sleep apnea: Status: Acute (4) Benign essential hypertension with target blood pressure below 140/90: Status: Acute (5) Atherosclerotic heart disease of [place] coronary artery with other forms of angina pectoris: Status: Acute (6) Vascular dementia: Status: Acute Qualifiers: Dementia behavioral disturbance: without behavioral disturbance Qualified Code(s): F01.50 - Vascular dementia without behavioral disturbance (7) CVA (cerebral vascular accident): Status: Acute Qualifiers: CVA mechanism: unspecified Qualified Code(s): I63.9 - Cerebral infarction, unspecified (8) Hyperglycemia: Status: Acute Plan #Acute metabolic encephalopathy: Secondary to hyperglycemia : #Generalized weakness #Dehydration #History of coronary artery disease status post CABG #Hypertension #Diabetes #History of CVA #History of fall #Advanced dementia Plan : Continue insulin Lantus 30 units subcu daily SSI Continue IV hydration with normal saline 75 cc an hour Follow urinalysis Continue home antihypertensive medications Continue aspirin, statin, beta-atiya Lovenox for DVT prophylax PT evaluation. #CODE STATUS: Full code Attestations Medical Necessity Statement*: Patient needs to be in hospital for management of acute metabolic encephalopathy, hyperglycemia, fall. Anticipated length of stay greater than 2 midnights. 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
[2021-07-30] MEDS: enoxaparin 40 mg/0.4 mL Syringe SUBCUT (04:00)
[2021-07-30 05:16] LABS: Basophils # 0.1 10^3/uL (0.0-0.1); Basophils % 0.6 %; Eosinophils # 0.2 10^3/uL (0.0-0.8); Eosinophils % 1.7 %; Hematocrit 32.3 % (42.0-52.0); Hemoglobin 10.2 g/dL (11.7-16.6); Lymphocytes # 1.3 10^3/uL (0.8-4.8); Lymphocytes % 14.5 %; Mean Corpuscular HGB Conc 31.6 g/dL (30.0-36.0); Mean Corpuscular Hemoglobin 24.5 pg (28.0-34.0); Mean Corpuscular Volume 77.6 fl (80-94); Mean Platelet Volume 9.3 fL (7.4-10.4); Monocytes % 11.5 %; Neutrophils # 6.42 10^3/uL (1.8-7.7); Neutrophils % 70.8 %; Nucleated Red Blood Cells % 0 %; Platelet Count 260 10^3/cmm (130-400); Red Blood Count 4.16 10^6/uL (4.1-5.3); Red Cell Distribution Width 14.4 % (12.1-15.1); White Blood Count 9.1 10^3/uL (4.0-10.0)
[2021-07-30 05:34] LABS: Troponin 5 6HR 20.78 ng/L (0-15)
[2021-07-30 05:35] LABS: Troponin 5 6HR Delta -1.22 ng/L (0-12)
[2021-07-30 05:36] LABS: Blood Urea Nitrogen 19 mg/dL (8-23); Calcium 9.3 mg/dL (8.5-10.5); Carbon Dioxide 23 mmol/L (22-29); Chloride 97 mmol/L (98-107); Glomerular Filtration Rate 134.4 mL/min (90-130); Glucose 264 mg/dL (65-115); Magnesium 1.6 mg/dL (1.7-2.3); Osmolality Calculated 289 mOsm/kg (285-295); Sodium 134 mmol/L (136-145)
[2021-07-30 05:38] LABS: Anion Gap 18.4 (5-19); Potassium 4.4 mmol/L (3.5-5.1)
[2021-07-30 06:18] LABS: Glucose Point of Care 298 mg/dL (70-110)
[2021-07-30] MEDS: carvedilol 12.5 mg Tablet PO ×2 (11:11→17:52)
[2021-07-30] MEDS: atorvastatin 40 mg Tablet 20 MG PO (11:11)
[2021-07-30] MEDS: aspirin 81 mg EC Tablet PO (11:11)
[2021-07-30] MEDS: sertraline 50 mg Tablet 150 MG PO (11:11)
[2021-07-30] MEDS: losartan 50 mg Tablet 100 MG PO (11:11)
[2021-07-30 11:15] LABS: Glucose Point of Care 490 mg/dL (70-110)
[2021-07-30 11:18] LABS: Glucose Point of Care 450 mg/dL (70-110)
[2021-07-30] MEDS: insulin glargine 100 units/1 mL 30 UNIT SUBCUT (11:23)
[2021-07-30] MEDS: insulin lispro 100 unit/1 mL SUBCUT ×3 (11:23→22:19)
[2021-07-30] MEDS: magnesium sulfate premix 2 GM/50 ML PIGGYBACK IV ×2 (11:29→21:57)
[2021-07-30] MEDS: sodium chloride 0.9% 1,000 ML 75 ML IV (11:29)
[2021-07-30 16:11] LABS: Add Urine Microscopic? YES; Bilirubin Urine Neg (Negative); Blood Urine 3+ (Negative); Glucose Urine UA 4+ (Normal); Ketones Urine 2+ (Negative); Leukocyte Esterase Urine Negative (Negative); Nitrate Urine Negative (Negative); Protein Urine 3+ (Negative); Urine Appearance Clear (CLEAR); Urine Color Yellow (Yellow); Urobilinogen Urine Neg (Negative); pH Urine 5 (5-7)
[2021-07-30 16:12] LABS: Bacteria Urine TRACE /hpf; Hyaline Casts Urine 0-4 /lpf; RBC Urine 0-4 /hpf (0-2); Squamous Epithelial Cell Urine 0-4 /hpf (0-5); WBC Urine 0-4 /hpf (0-5)
[2021-07-30 16:13] LABS: Add Urine Culture? No
[2021-07-30 17:11] LABS: Glucose Point of Care 268 mg/dL (70-110)
--- NOTE | 2021-07-30 19:37 | P.PN_ITS ---
Subjective Subjective: Interval history: Recently with difficulty ambulating, more confused, evaluation he is awake, alert, interactive, knows he is in the hospital, does not know how he ended up here. Does not remember the year. Denies any pain. Denies headache, dizziness, nausea or vomiting. States appetite has been pretty good he feels. Vitals/I&O/Wt Last Vital Signs Temp 98.1 F 07/30/21 16:00 Pulse 84 07/30/21 16:00 Resp 18 07/30/21 16:00 BP 124/74 07/30/21 16:00 Pulse Ox 94 07/30/21 16:00 07/30/21 07/30/21 07/30/21 06:59 14:59 22:59 Intake Total 790 / 790 Balance 790 / 790 Weight last 48 hrs Weight 95.254 kg Weight 95.254 kg Physical Exam Const: COMMON NORMALS: no acute distress; negative for patient oriented x3 HENMT: COMMON NORMALS: oropharynx normal Neck/C-Spine: COMMON NORMALS: no JVD Resp: COMMON NORMALS: normal respiratory effort and clear to auscultation bilaterally AUSCULTATION: clear to auscultation bilaterally Cardio: COMMON NORMALS: no JVD, regular rhythm, S1 normal heart sound present, S2 normal heart sound present and No murmurs present (Cardio) RHYTHM: regular rhythm HEART SOUNDS: S1 normal heart sound present and S2 normal heart sound present GI: COMMON NORMALS: Normal to inspection, nondistended, normoactive bowel sounds present, Soft to palpation and non-tender PALPATION: Yes Soft to palpation Extremity: COMMON NORMALS: no joint enlargement and no pedal edema Neuro: COMMON NORMALS: moves all extremities; negative for patient oriented x3 MOTOR EXAM: Abnormal motor strength present (3-4/5 BL LE) and Other motor observations present (No clonus) Skin: COMMON NORMALS: no rashes or lesions noted GENERAL SKIN EXAM: no rashes or lesions noted Data : 07/30/21 05:08 07/30/21 05:08 A&P Assessment and plan (1) Altered mental status: Patient progressively improving, during my visit he is awake and alert, although is not oriented. Underlying dementia. Advanced diffuse cerebral atrophy and sequela of chronic small vessel ischemic disease on CT. Unclear chronicity of left side facial droop. No obvious CVA on CT. Otherwise does not appear to have focal sensory or motor deficit. No clonus. Some bilateral lower extremity weakness 3-4+/5. Additionally assessed thoracic and lumbar spine CT. clinically does not have symptoms of acute cord compression. Check Mg. Phos. TSH. UA requested, no UTI Appreciate PT assessment, additional OT assessment. Would benefit from skilled care. With encephalopathy noted on presentation, hold sertraline for now. Due to dehydration hold HCTZ. Continue gentle IV hydration. P.o. intake is tolerating. Hyperglycemia improving with insulin. Continue. Status: Acute (2) Generalized weakness: As above. Status: Acute (3) Obstructive sleep apnea: Status: Acute (4) Benign essential hypertension with target blood pressure below 140/90: Status: Acute (5) Atherosclerotic heart disease of [place] coronary artery with other forms of angina pectoris: Status: Acute (6) Vascular dementia: Status: Acute Qualifiers: Dementia behavioral disturbance: without behavioral disturbance Qualified Code(s): F01.50 - Vascular dementia without behavioral disturbance (7) CVA (cerebral vascular accident): Status: Acute Qualifiers: CVA mechanism: unspecified Qualified Code(s): I63.9 - Cerebral infarction, unspecified (8) Hyperglycemia: Status: Acute Plan #Acute metabolic encephalopathy: Secondary to hyperglycemia : #Generalized weakness #Dehydration #History of coronary artery disease status post CABG #Hypertension #Diabetes #History of CVA #History of fall #Advanced dementia Attestations Medical Necessity Statement*: Continue admission for assessment management of difficulty walking, functional decline, improve encephalopathy in gentleman with underlying dementia now suddenly unable to ambulate Coding Level of Care Code Acute Raised Printer for [facility] Fw Diagnoses Altered mental status R41.82 Generalized weakness R53.1 Obstructive sleep apnea G47.33 Benign essential hypertension with target blood pressure below 140/90 I10 Atherosclerotic heart disease of [place] coronary artery with other forms of a ngina pectoris I25.118 Vascular dementia F01.50 Dementia behavioral disturbance: without behavioral disturbance CVA (cerebral vascular accident) I63.9 CVA mechanism: unspecified Hyperglycemia R73.9
[2021-07-30 21:25] LABS: Glucose Point of Care 267 mg/dL (70-110)
[2021-07-31] VITALS (8 sets, daily range): BP systolic 132–172; BP diastolic 61–76; PULSE 80–96; RESP 15–18; TEMP 36.5–37; O2SAT 90–95
[2021-07-31] MEDS: enoxaparin 40 mg/0.4 mL Syringe SUBCUT ×2 (00:43→23:08)
[2021-07-31] MEDS: sodium chloride 0.9% 1,000 ML 75 ML IV ×2 (03:53→12:54)
[2021-07-31 06:03] LABS: Basophils % 0.6 %; Eosinophils # 0.2 10^3/uL (0.0-0.8); Eosinophils % 2.5 %; Hematocrit 31.8 % (42.0-52.0); Hemoglobin 9.8 g/dL (11.7-16.6); Lymphocytes # 1.2 10^3/uL (0.8-4.8); Lymphocytes % 16.8 %; Mean Corpuscular HGB Conc 30.8 g/dL (30.0-36.0); Mean Corpuscular Hemoglobin 24.1 pg (28.0-34.0); Mean Corpuscular Volume 78.1 fl (80-94); Mean Platelet Volume 9.8 fL (7.4-10.4); Monocytes # 0.6 10^3/uL (0.2-0.9); Monocytes % 8.1 %; Neutrophils # 5.09 10^3/uL (1.8-7.7); Neutrophils % 71.3 %; Nucleated Red Blood Cells % 0 %; Platelet Count 296 10^3/cmm (130-400); Red Blood Count 4.07 10^6/uL (4.1-5.3); Red Cell Distribution Width 14.3 % (12.1-15.1); White Blood Count 7.1 10^3/uL (4.0-10.0)
[2021-07-31 06:39] LABS: Glucose Point of Care 172 mg/dL (70-110)
[2021-07-31 06:45] LABS: Anion Gap 15.9 (5-19); Blood Urea Nitrogen 17 mg/dL (8-23); Calcium 9.1 mg/dL (8.5-10.5); Carbon Dioxide 23 mmol/L (22-29); Chloride 103 mmol/L (98-107); Glomerular Filtration Rate 134.4 mL/min (90-130); Glucose 144 mg/dL (65-115); Magnesium 2.3 mg/dL (1.7-2.3); Osmolality Calculated 290 mOsm/kg (285-295); Phosphorus 3.4 mg/dL (2.5-4.5); Potassium 3.9 mmol/L (3.5-5.1); Sodium 138 mmol/L (136-145); Thyroid Stimulating Hormone 1.37 uIU/mL (0.27-4.20)
[2021-07-31] MEDS: atorvastatin 40 mg Tablet 20 MG PO (08:15)
[2021-07-31] MEDS: carvedilol 12.5 mg Tablet PO ×2 (08:15→17:50)
[2021-07-31] MEDS: losartan 50 mg Tablet 100 MG PO (08:15)
[2021-07-31] MEDS: sertraline 50 mg Tablet 150 MG PO (08:16)
[2021-07-31] MEDS: insulin glargine 100 units/1 mL 30 UNIT SUBCUT (08:16)
[2021-07-31] MEDS: insulin lispro 100 unit/1 mL SUBCUT ×3 (08:17→17:50)
[2021-07-31] MEDS: aspirin 81 mg EC Tablet PO (08:20)
--- NOTE | 2021-07-31 09:48 | PC.CHAP ---
Pastoral Care Encounter/Spiritual Assessment Type of Contact [] Declined care aide visit [] Patient/Family/Request visit [] Outpatient visit [] Follow-up visit [] Physician referral [] Code/Alert x[] Routine visit [] Staff referral [] Actively dying [] Patient sleeping [] Family support [] [] Out of room [] Palliative care [] [] Receiving care in room [] Pre-surgical visit [] Trauma [] Long length of stay [] ICU visit [] Other: Relational/Emotional Strength [] Patient feels connected with others/family/visitors/staff [] Distress [] Loneliness/isolation [] Abandonment Spirituality of Patient [x] Person of [place] [] Attends Voodoo of their [place] [x] Believes in Prayer [] Reads Bible or Cheondoism materials [] There are Spiritual issues to be addressed Ballistic Expert Interventions [] Prayer [] Active listening [] Non-anxious presence [] Spiritual/emotional support [] Crisis/trauma care [] Spiritual counseling [] Bereavement support [] Provided bereavement packet [] Provided Bible/devotional materials [] Provided toy/stuffed animal, coloring book to patient or family member [] Provided Communion [] Anointing/[place] [] Salvation [x] Completed spiritual assessment [] Other: Impact on Illness or Injury [] Angry [] Fearful [] Anxious [] Often cries [] Exhaustion [] Unable to work [] Unable to attend taoist [] Unable to walk/stand [] Unable to read [] Unable to drive [] Unable to eat/drink [] Unable to sleep [] Unable to be with family [] Patient intubated [] Other: Summary Time spent with patient
[2021-07-31 17:41] LABS: Glucose Point of Care 462 mg/dL (70-110)
[2021-07-31 17:41] LABS: Glucose Point of Care 353 mg/dL (70-110)
--- NOTE | 2021-07-31 19:35 | P.PN_ITS ---
Subjective Subjective: Interval history: Returning from CT scan denies any pain. His does state that he was recently preferring to sit in the chair an antalgic positioning, she is not sure if may be due to back pain. Vitals/I&O/Wt Last Vital Signs Temp 98.6 F 07/31/21 12:00 Pulse 93 07/31/21 16:00 Resp 16 07/31/21 16:00 BP 143/72 07/31/21 16:00 Pulse Ox 92 07/31/21 16:00 07/31/21 07/31/21 07/31/21 06:59 14:59 22:59 Intake Total 1120 / 1910 726.25 / 726.25 Output Total 300 / 300 450 / 450 Balance 820 / 1610 276.25 / 276.25 Weight last 48 hrs Weight 95.254 kg Physical Exam Narrative: EXAM NARRATIVE: at bedside. Const: COMMON NORMALS: no acute distress; negative for patient oriented x3 HENMT: COMMON NORMALS: oropharynx normal Neck/C-Spine: COMMON NORMALS: no JVD Resp: COMMON NORMALS: normal respiratory effort and clear to auscultation bilaterally AUSCULTATION: clear to auscultation bilaterally Cardio: COMMON NORMALS: no JVD, regular rhythm, S1 normal heart sound present, S2 normal heart sound present and No murmurs present (Cardio) RHYTHM: regular rhythm HEART SOUNDS: S1 normal heart sound present and S2 normal heart sound present GI: COMMON NORMALS: Normal to inspection, nondistended, normoactive bowel sounds present, Soft to palpation and non-tender PALPATION: Yes Soft to palpation Extremity: COMMON NORMALS: no joint enlargement and no pedal edema Neuro: COMMON NORMALS: moves all extremities; negative for patient oriented x3 MOTOR EXAM: Abnormal motor strength present (3-4/5 BL LE) and Other motor observations present (No clonus) Skin: COMMON NORMALS: no rashes or lesions noted GENERAL SKIN EXAM: no rashes or lesions noted Data : 07/31/21 04:49 07/31/21 04:49 A&P Assessment and plan (1) Altered mental status: Reports recently worsened left-sided facial droop. Discussed we cannot exclude CVA, although he is very sensitive to loud noises, and would not likely tolerate MRI. CT without evidence of CVA, but chronic microvascular changes. Concern is for progressive vascular dementia which his mentions. Discussed possible superimposed delirium on top of dementia, although possibly progression of dementia itself. We are not seeing infectious cause at this time. Glucose is variable. She states that he does not let her give him insulin at home. As well as other medications, as well as does not want to shower. Difficulties with ambulation appear multifactorial with degenerative changes noted on thoracic and lumbar spine CT, as well as possibility of progression of dementia. Would benefit from further skilled care, and arrangements are underway for rehabilitation prior to return home. TSH, phosphorus, magnesium normal. We will check B12, folic acid. UA - no UTI With encephalopathy noted on presentation, continue sertraline Due to dehydration hold HCTZ. Stop IVF Increased dose of long-acting insulin due to hyperglycemia. Status: Acute (2) Generalized weakness: As above. Status: Acute (3) Obstructive sleep apnea: Status: Acute (4) Benign essential hypertension with target blood pressure below 140/90: Status: Acute (5) Atherosclerotic heart disease of [place] coronary artery with other forms of angina pectoris: Status: Acute (6) Vascular dementia: Status: Acute Qualifiers: Dementia behavioral disturbance: without behavioral disturbance Qualified Code(s): F01.50 - Vascular dementia without behavioral disturbance (7) CVA (cerebral vascular accident): Status: Acute Qualifiers: CVA mechanism: unspecified Qualified Code(s): I63.9 - Cerebral infarction, unspecified (8) Hyperglycemia: Status: Acute Attestations Medical Necessity Statement*: Continue admission for assessment of management of acute encephalopathy, sudden difficulty with ambulation, functional decline, disposition arrangements. 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
--- NOTE | 2021-07-31 20:11 | CT_ITS ---
WS: [id number] CT THORACIC SPINE TECHNIQUE: Noncontrast CT of the thoracic spine with coronal and sagittal reformatted images. CLINICAL INFORMATION: diffic walking COMPARISON: None. DLP: 2408.[address] scans at [facility] use at least one of these dose optimization techniques: automated e xposure control; mA and/or kV adjustment per patient size (includes targeted exams where dose is matc hed to clinical indication); or iterative reconstruction. FINDINGS: Mild thoracic kyphosis. Mild thoracic curve. Hypertrophic changes thoracic spine. No acute appearing compression fractures. Mild disc space narrowing in the mid lower thoracic spine. No high-grade centr al canal stenosis. Small shallow central protrusion T9-T10 with mild central canal stenosis. Moderate facet arthropathy lower thoracic spine. Adrenal glands are normal. Small esophageal hiatal hernia. Aortic calcification. Partially visualized ectatic ascending thoracic aorta. This can be further evaluated with CTA chest. This measures approx imately 3.6 cm in maximum dimension incompletely evaluated. Coronary calcification. Hazy opacity supe rior segment right lower lobe measuring 12 mm. Recommend further evaluation with chest CT. CT/CT thoracic spin wo con* [id number] IMPRESSION: 1. Mild spondylitic changes thoracic spine. No acute compression fractures. 2. Small shallow central protrusion T9-T10 with mild central canal stenosis. 3. Mild disc space narrowing in the mid and lower thoracic spine. 4. Hazy opacity super segment right lower lobe partially evaluated measuring 1 2 mm. Recommend further evaluation with CT chest. 5. Slightly ectatic ascending thoracic aorta measuring 3.6 cm but incompletely evaluated. This can be evaluated with CTA chest. 6. Small esophageal hiatal hernia.
--- NOTE | 2021-07-31 20:11 | CT_ITS ---
WS: [id number] CT LUMBAR SPINE TECHNIQUE: Noncontrast CT of the lumbar spine with coronal and sagittal reformatted images. CLINICAL INFORMATION: diffic walking COMPARISON: None. DLP: 2217.[address] scans at [facility] use at least one of these dose optimization techniques: automated e xposure control; mA and/or kV adjustment per patient size (includes targeted exams where dose is matc hed to clinical indication); or iterative reconstruction. FINDINGS: Mild lumbar curve. No acute compression. Moderate spondylitic changes lumbar spine. L1-L2: Mild annular bulging with slight effacement of ventral thecal sac. Mild facet arthropathy. Spi nal canal and foramen are patent. L2-L3: Mild disc bulging with mild central canal stenosis. Slight impingement on the subarticular rec ess bilaterally and traversing L3 nerve roots. Mild left foraminal narrowing. Moderate facet arthropa thy with ligamentum flavum hypertrophy. L3-L4: Disc osteophyte complex with endplate ridging. Moderate central canal stenosis. Moderate facet arthropathy with ligamentum flavum hypertrophy. Mild left foraminal narrowing. L4-L5: Mild disc osteophytic ridging. Partial ankylosis of the disc space. Mild central canal stenosi s. Impingement traversing L5 nerve roots bilaterally. Mild to moderate left greater than right bony f oraminal narrowing. Moderate facet arthropathy. L5-S1: Disc osteophyte complex with endplate ridging. Impingement on the traversing left S1 nerve will t. Mild left greater than right foraminal narrowing. Moderate facet arthropathy. Visualized pelvic bony structures: Normal. Paravertebral soft tissues: Normal. CT/CT lumbar spine wo con* [id number] IMPRESSION: 1. Mild lumbar curve. No acute compression. 2. Mild central canal stenosis L2-3. Moderate central canal stenosis L3-4 and L4-5 due to disc osteophyte complexes. 3. Mild to moderate bony foraminal narrowing worse at left L3-4, bilateral L4- 5 worse in the left, and left L5-S1. 4. Moderate facet arthropathy L3-L4 L4-L5 and L5-S1.
[2021-07-31 20:59] LABS: Vitamin B12 399 pg/mL (232-1245)
[2021-07-31 21:38] LABS: Folate Level 5.7 ng/mL (4.5-32.2)
[2021-07-31 22:52] LABS: Glucose Point of Care 129 mg/dL (70-110)
[2021-08-01] VITALS (7 sets, daily range): BP systolic 118–176; BP diastolic 67–75; PULSE 81–91; RESP 15–18; TEMP 36.8–37.2; O2SAT 93–96
[2021-08-01 06:39] LABS: Basophils # 0.1 10^3/uL (0.0-0.1); Basophils % 0.9 %; Eosinophils # 0.2 10^3/uL (0.0-0.8); Eosinophils % 2.3 %; Hemoglobin 9.6 g/dL (11.7-16.6); Lymphocytes # 1.2 10^3/uL (0.8-4.8); Lymphocytes % 18.3 %; Mean Corpuscular Hemoglobin 24.4 pg (28.0-34.0); Mean Corpuscular Volume 78.7 fl (80-94); Mean Platelet Volume 9.5 fL (7.4-10.4); Monocytes # 0.6 10^3/uL (0.2-0.9); Monocytes % 9.5 %; Neutrophils # 4.39 10^3/uL (1.8-7.7); Neutrophils % 68.2 %; Nucleated Red Blood Cells % 0 %; Platelet Count 262 10^3/cmm (130-400); Red Blood Count 3.94 10^6/uL (4.1-5.3); Red Cell Distribution Width 14.3 % (12.1-15.1); White Blood Count 6.4 10^3/uL (4.0-10.0)
[2021-08-01 06:48] LABS: Glucose Point of Care 239 mg/dL (70-110)
[2021-08-01 07:00] LABS: Blood Urea Nitrogen 15 mg/dL (8-23); Calcium 8.2 mg/dL (8.5-10.5); Carbon Dioxide 25 mmol/L (22-29); Chloride 101 mmol/L (98-107); Glomerular Filtration Rate 165.9 mL/min (90-130); Glucose 178 mg/dL (65-115); Osmolality Calculated 285 mOsm/kg (285-295); Sodium 135 mmol/L (136-145)
[2021-08-01] MEDS: insulin lispro 100 unit/1 mL SUBCUT ×3 (09:27→21:42)
[2021-08-01] MEDS: atorvastatin 40 mg Tablet 20 MG PO (09:28)
[2021-08-01] MEDS: losartan 50 mg Tablet 100 MG PO (09:29)
[2021-08-01] MEDS: sertraline 50 mg Tablet 150 MG PO (09:30)
[2021-08-01] MEDS: carvedilol 12.5 mg Tablet PO ×2 (09:30→17:54)
[2021-08-01] MEDS: aspirin 81 mg EC Tablet PO (10:59)
[2021-08-01] MEDS: insulin glargine 100 units/1 mL 40 UNIT SUBCUT (11:00)
[2021-08-01 11:22] LABS: Glucose Point of Care 316 mg/dL (70-110)
[2021-08-01 17:28] LABS: Glucose Point of Care 137 mg/dL (70-110)
--- NOTE | 2021-08-01 18:00 | PM.PN ---
Subjective Subjective: Interval history: Denies any new symptoms. Denies pain or discomfort. Working with physical therapy today. Vitals/I&O/Wt Last Vital Signs Temp 98.9 F 08/01/21 16:00 Pulse 86 08/01/21 16:00 Resp 16 08/01/21 16:00 BP 136/74 08/01/21 16:00 Pulse Ox 94 08/01/21 16:00 08/01/21 08/01/21 08/01/21 06:59 14:59 22:59 Intake Total 100 / 826.25 120 / 120 Balance 100 / 376.25 120 / 120 Physical Exam Narrative: EXAM NARRATIVE: Up in chair. at bedside. Const: COMMON NORMALS: no acute distress; negative for patient oriented x3 HENMT: COMMON NORMALS: oropharynx normal Neck/C-Spine: COMMON NORMALS: no JVD Resp: COMMON NORMALS: normal respiratory effort and clear to auscultation bilaterally AUSCULTATION: clear to auscultation bilaterally Cardio: COMMON NORMALS: no JVD, regular rhythm, S1 normal heart sound present, S2 normal heart sound present and No murmurs present (Cardio) RHYTHM: regular rhythm HEART SOUNDS: S1 normal heart sound present and S2 normal heart sound present GI: COMMON NORMALS: Normal to inspection, nondistended, normoactive bowel sounds present, Soft to palpation and non-tender PALPATION: Yes Soft to palpation Extremity: COMMON NORMALS: no joint enlargement and no pedal edema Neuro: COMMON NORMALS: moves all extremities; negative for patient oriented x3 MOTOR EXAM: Abnormal motor strength present (3-4/5 BL LE) and Other motor observations present (No clonus) Skin: COMMON NORMALS: no rashes or lesions noted GENERAL SKIN EXAM: no rashes or lesions noted Data : 08/01/21 05:48 08/01/21 05:48 A&P Assessment and plan (1) Altered mental status: With possible CVA, obtain carotid duplex. Echocardiogram. Continue aspirin, statin. Continue arrangements for placement to rehabilitation, pending prior authorization. Possible CVA, although he is very sensitive to loud noises, and would not likely tolerate MRI. CT without evidence of CVA, but chronic microvascular changes. Concern is for progressive vascular dementia which his mentions. Discussed possible superimposed delirium on top of dementia, although possibly progression of dementia itself. We are not seeing infectious cause at this time. Glucose is variable. She states that he does not let her give him insulin at home. As well as other medications, as well as does not want to shower. Difficulties with ambulation appear multifactorial with degenerative changes noted on thoracic and lumbar spine CT, as well as possibility of progression of dementia. Would benefit from further skilled care, and arrangements are underway for rehabilitation prior to return home. TSH, phosphorus, magnesium normal. Normal B12, folic acid. UA - no UTI With encephalopathy noted on presentation, continue sertraline Due to dehydration hold HCTZ. Off IVF Increased dose of long-acting insulin due to hyperglycemia. Status: Acute (2) Generalized weakness: As above. Status: Acute (3) Obstructive sleep apnea: Status: Acute (4) Benign essential hypertension with target blood pressure below 140/90: Status: Acute (5) Atherosclerotic heart disease of [place] coronary artery with other forms of angina pectoris: Status: Acute (6) Vascular dementia: Status: Acute Qualifiers: Dementia behavioral disturbance: without behavioral disturbance Qualified Code(s): F01.50 - Vascular dementia without behavioral disturbance (7) CVA (cerebral vascular accident): Status: Acute Qualifiers: CVA mechanism: unspecified Qualified Code(s): I63.9 - Cerebral infarction, unspecified (8) Hyperglycemia: Status: Acute Attestations Medical Necessity Statement*: Continue admission for assessment management of difficulty with ambulation, AMS, possible CVA, disposition planning pending prior authorization for rehabilitation. Coding Level of Care Code Acute Second Ride [employer]or for Stevo Carreno Diagnoses Altered mental status R41.82 Generalized weakness R53.1 Obstructive sleep apnea G47.33 Benign essential hypertension with target blood pressure below 140/90 I10 Atherosclerotic heart disease of [place] coronary artery with other forms of angina pectoris I25.118 Vascular dementia F01.50 Dementia behavioral disturbance: without behavioral disturbance CVA (cerebral vascular accident) I63.9 CVA mechanism: unspecified Hyperglycemia R73.9
[2021-08-01 21:06] LABS: Glucose Point of Care 214 mg/dL (70-110)
[2021-08-02] VITALS (8 sets, daily range): BP systolic 105–149; BP diastolic 63–74; PULSE 70–89; RESP 17–18; TEMP 36.6–36.8; O2SAT 94–95
[2021-08-02] MEDS: enoxaparin 40 mg/0.4 mL Syringe SUBCUT (00:13)
[2021-08-02 06:20] LABS: Glucose Point of Care 114 mg/dL (70-110)
[2021-08-02 06:51] LABS: Anion Gap 14.9 (5-19); Blood Urea Nitrogen 10 mg/dL (8-23); Calcium 8.3 mg/dL (8.5-10.5); Carbon Dioxide 24 mmol/L (22-29); Chloride 101 mmol/L (98-107); Glomerular Filtration Rate 165.9 mL/min (90-130); Glucose 102 mg/dL (65-115); Osmolality Calculated 281 mOsm/kg (285-295); Potassium 3.9 mmol/L (3.5-5.1); Sodium 136 mmol/L (136-145)
[2021-08-02 07:16] LABS: Basophils # 0.1 10^3/uL (0.0-0.1); Basophils % 0.8 %; Eosinophils # 0.1 10^3/uL (0.0-0.8); Eosinophils % 2.2 %; Hematocrit 34.9 % (42.0-52.0); Hemoglobin 11.3 g/dL (11.7-16.6); Lymphocytes # 1.2 10^3/uL (0.8-4.8); Lymphocytes % 19.5 %; Mean Corpuscular HGB Conc 32.4 g/dL (30.0-36.0); Mean Corpuscular Hemoglobin 24.4 pg (28.0-34.0); Mean Corpuscular Volume 75.4 fl (80-94); Mean Platelet Volume 9.5 fL (7.4-10.4); Monocytes # 0.5 10^3/uL (0.2-0.9); Monocytes % 7.6 %; Neutrophils # 4.29 10^3/uL (1.8-7.7); Neutrophils % 68.2 %; Nucleated Red Blood Cells % 0 %; Platelet Count 267 10^3/cmm (130-400); Red Blood Count 4.63 10^6/uL (4.1-5.3); Red Cell Distribution Width 14.3 % (12.1-15.1); White Blood Count 6.3 10^3/uL (4.0-10.0)
[2021-08-02] MEDS: carvedilol 12.5 mg Tablet PO ×2 (09:29→17:13)
[2021-08-02] MEDS: losartan 50 mg Tablet 100 MG PO (09:29)
[2021-08-02] MEDS: atorvastatin 40 mg Tablet 20 MG PO (09:30)
[2021-08-02] MEDS: sertraline 50 mg Tablet 150 MG PO (09:30)
[2021-08-02] MEDS: aspirin 81 mg EC Tablet PO (09:30)
[2021-08-02] MEDS: insulin glargine 100 units/1 mL 40 UNIT SUBCUT (09:32)
--- NOTE | 2021-08-02 13:04 | PC.SOCIAL ---
Pg 2 IMM Explained to pt Pg 2 IMM. No questions voiced. Provided pt a copy. Initialed, dated, & timed a copy & placed in chart.
--- NOTE | 2021-08-02 15:10 | P.DS_ITS ---
Discharge Providers Date of Admission: 07/30/21 06:08 Date of Discharge: August 02, 2021 Attending Provider at Admission: Ben Zacarias MD Attending Provider at Discharge: Jose Sanchez Primary Care Provider: KIAN Swartz Diagnoses at Discharge Discharge Diagnosis (1) Altered mental status: Status: Acute (2) Generalized weakness: Status: Acute (3) Obstructive sleep apnea: Status: Acute (4) Benign essential hypertension with target blood pressure below 140/90: Status: Acute (5) Atherosclerotic heart disease of [place] coronary artery with other forms of angina pectoris: Status: Acute Permanent problem details: New from 05/28/2021 revealed a sinus rhythm with normal ST Ts. Low voltage complexes in the precordial leads. Poor R wave progression. (6) Vascular dementia: Status: Acute Qualifiers: Dementia behavioral disturbance: without behavioral disturbance Qualified Code(s): F01.50 - Vascular dementia without behavioral disturbance (7) CVA (cerebral vascular accident): Status: Acute Qualifiers: CVA mechanism: unspecified Qualified Code(s): I63.9 - Cerebral infarction, unspecified (8) Hyperglycemia: Status: Acute Reason for Visit Reason for Visit: stoke symptoms Hospital Course Hospital Course Pleasant 66-year-old gentleman with history of vascular dementia, CAD, CABG, HTN, DM 2, CVA, was admitted for this management due to altered mental status, with worsening confusion, also with significant functional decline and difficulty with even ambulation. noticed he had also developed worsened left-sided facial droop. On presentation CT of the head without acute intracranial abnormality, with multifocal sinusitis, incidentally noted as well as advanced diffuse cerebral atrophy and sequela of chronic small vessel ischemic disease. Chest x-ray without acute findings. TSH, UA, magnesium and phosphorus were checked, all unremarkable. No obvious CVA, although with confusion, worsened to left side facial droop, possible CVA discussed with his . With more sudden difficulty with ambulation, related to more weakness in his legs, additionally assessed by CT thoracic and lumbar spine with finding of multilevel degenerative changes without fracture compression fractures or spinal cord compression. Incidentally noted hazy opacity superior segment of right lower lobe partially evaluated measuring 12 mm. Recommended further evaluation by nonemergent CT of the chest. Also incidentally noted slightly ectatic ascending thoracic aorta measuring 3.6 cm but incompletely evaluated. Consider additional nonurgent CTA chest. Incidentally noted small esophageal hiatal hernia. He was additionally assessed by carotid duplex study with finding of right ICA 50-69% stenosis, left ICA less than 50% stenosis. TTE obtained as well, showing normal ejection fraction, normal diastolic function, with noted abnormal septal motion. Normal right ventricular size and normal systolic function. No significant valvular abnormality. No significant change compared to prior study in March 2020. He was continued on aspirin. Started on high intensity statin. He was assessed by PT, OT, ST. With dehydration noted on presentation, HCTZ was discontinued and he received transient IV hydration. He is tolerating oral intake. Given his performance he will be transitioning for additional rehabilitation at [facility] prior to return home. Depending on his ability to rehabilitate, as well as further functional capacity, may be considering also transitioning to hospice care given he has been reluctant to take medications and adhere with other medical care, although has done well here in the hospital. Depending on goals of care, once he is recovering from acute illness, please refer him for additional assessment of the 12 mm right lower lobe opacity. As well as CTA for additional assessment of slightly ectatic ascending thoracic aorta at 3.6 cm. Consider referral to neurology for closer assessment of vascular dementia. Due to dehydration noted on presentation, HCTZ for now is discontinued. Physical Exam Narrative: EXAM NARRATIVE: Up in bed. at bedside. Const: COMMON NORMALS: no acute distress; negative for patient oriented x3 OTHER: Pleasant, cooperative. HENMT: COMMON NORMALS: oropharynx normal Neck/C-Spine: COMMON NORMALS: no JVD Resp: COMMON NORMALS: normal respiratory effort and clear to auscultation bilaterally AUSCULTATION: clear to auscultation bilaterally Cardio: COMMON NORMALS: no JVD, regular rhythm, S1 normal heart sound present, S2 normal heart sound present and No murmurs present (Cardio) RHYTHM: regular rhythm HEART SOUNDS: S1 normal heart sound present and S2 normal heart sound present GI: COMMON NORMALS: Normal to inspection, nondistended, normoactive bowel sounds present, Soft to palpation and non-tender PALPATION: Yes Soft to palpation Extremity: COMMON NORMALS: no joint enlargement and no pedal edema Neuro: COMMON NORMALS: moves all extremities; negative for patient oriented x3 MOTOR EXAM: Other motor observations present (No clonus) OTHER: Persistent left-sided facial droop. Skin: COMMON NORMALS: no rashes or lesions noted GENERAL SKIN EXAM: no rashes or lesions noted Discharge Data Studies Completed and Pending Completed Studies During Hospitalization Category Date Time Status CT head wo con* [id number] Urgent Cat Scan 07/29/21 18:[address] lumbar spine wo con* [id number] Routine Cat Scan 07/31/21 20:[address] thoracic spin wo con* [id number] Routine Cat Scan 07/31/21 20:11 Completed XR chest 1V portable [id number] Urgent Exams 07/29/21 18:04 Completed CV carotid duplex BI* [id number] Routine Ultrasound 08/02/21 18:04 Completed CV. echo complete* [id number] Routine Ultrasound 08/02/21 18:04 Completed Pending at discharge Category Date Time Status SARS Covid-2 Antigen Stat Lab 08/02/21 14:28 Uncollected Radiology Impressions Chest X-Ray 07/29/21 18:04 IMPRESSION: No acute findings. Head CT 07/29/21 18:04 IMPRESSION: 1. No acute intracranial abnormality. 2. Multifocal sinusitis. 3. Advanced diffuse cerebral atrophy and sequela of chronic small vessel ischemic disease. Lumbar Spine CT 07/31/21 20:11 IMPRESSION: 1. Mild lumbar curve. No acute compression. 2. Mild central canal stenosis L2-3. Moderate central canal stenosis L3-4 and L4-5 due to disc osteophyte complexes. 3. Mild to moderate bony foraminal narrowing worse at left L3-4, bilateral L4-5 worse in the left, and left L5-S1. 4. Moderate facet arthropathy L3-L4 L4-L5 and L5-S1. Thoracic Spine CT 07/31/21 20:11 IMPRESSION: 1. Mild spondylitic changes thoracic spine. No acute compression fractures. 2. Small shallow central protrusion T9-T10 with mild central canal stenosis. 3. Mild disc space narrowing in the mid and lower thoracic spine. 4. Hazy opacity super segment right lower lobe partially evaluated measuring 12 mm. Recommend further evaluation with CT chest. 5. Slightly ectatic ascending thoracic aorta measuring 3.6 cm but incompletely evaluated. This can be evaluated with CTA chest. 6. Small esophageal hiatal hernia. Laboratory Results WBC 6.3 10^3/uL (4.0-10.0) 08/02/21 06:09 RBC 4.63 10^6/uL (4.1-5.3) 08/02/21 06:09 Hgb 11.3 g/dL (11.7-16.6) L 08/02/21 06:09 Hct 34.9 % (42.0-52.0) L 08/02/21 06:09 MCV 75.4 fl (80-94) L 08/02/21 06:09 MCH 24.4 pg (28.0-34.0) L 08/02/21 06:09 MCHC 32.4 g/dL (30.0-36.0) 08/02/21 06:09 RDW 14.3 % (12.1-15.1) 08/02/21 06:09 Plt Count 267 10^3/cmm (130-400) 08/02/21 06:09 MPV 9.5 fL (7.4-10.4) 08/02/21 06:09 Neut % (Auto) 68.2 % 08/02/21 06:09 Lymph % (Auto) 19.5 % 08/02/21 06:09 Barry % (Auto) 7.6 % 08/02/21 06:09 Eos % (Auto) 2.2 % 08/02/21 06:09 Baso % (Auto) 0.8 % 08/02/21 06:09 Neut # (Auto) 4.29 10^3/uL (1.8-7.7) 08/02/21 06:09 Lymph # (Auto) 1.2 10^3/uL (0.8-4.8) 08/02/21 06:09 Barry # (Auto) 0.5 10^3/uL (0.2-0.9) 08/02/21 06:09 Eos # (Auto) 0.1 10^3/uL (0.0-0.8) 08/02/21 06:09 Baso # (Auto) 0.1 10^3/uL (0.0-0.1) 08/02/21 06:09 Nucleated RBC % (auto) 0 % 08/02/21 06:09 Nucleated RBCs # 0.0 /100WBC 08/02/21 06:09 PT 14.10 SECONDS (12.1-14.9) 07/29/21 21:57 INR 1.05 (0.8-1.2) 07/29/21 21:57 Specimen Type Arterial 07/29/21 20:24 Sample Site Radial, left 07/29/21 20:24 ABG pH 7.53 (7.35-7.45) H 07/29/21 20:24 ABG pCO2 30.1 mmHg (35-45) L 07/29/21 20:24 ABG pO2 84.1 mmHg (80.0-100.0) 07/29/21 20:24 ABG HCO3 24.9 mmol/L (22-26) 07/29/21 20:24 ABG Base Excess 2.7 mmol/L (-2.0-2.0) H 07/29/21 20:24 Elijah Test Pos 07/29/21 20:24 Hematocrit 36.8 % (42-52) L 07/29/21 20:24 O2 Delivery Device Room air 07/29/21 20:24 FiO2 21.0 % 07/29/21 20:24 Corporate Travel Manager ID Buttr 07/29/21 20:24 Sodium 136 mmol/L (136-145) 08/02/21 06:09 Potassium 3.9 mmol/L (3.5-5.1) 08/02/21 06:09 Chloride 101 mmol/L (98-107) 08/02/21 06:09 Carbon Dioxide 24 mmol/L (22-29) 08/02/21 06:09 Anion Gap 14.9 (5-19) 08/02/21 06:09 BUN 10 mg/dL (8-23) 08/02/21 06:09 Creatinine 0.5 mg/dL (0.7-1.2) L 08/02/21 06:09 GFR Calculation 165.9 mL/min (90-130) H 08/02/21 06:09 Glucose 102 mg/dL (65-115) 08/02/21 06:09 POC Glucose 114 mg/dL (70-110) H 08/02/21 06:14 Calculated Osmolality 281 mOsm/kg (285-295) L 08/02/21 06:09 Lactate 1.3 mmol/L (0.5-2.2) 07/29/21 21:57 Calcium 8.3 mg/dL (8.5-10.5) L 08/02/21 06:09 Phosphorus 3.4 mg/dL (2.5-4.5) 07/31/21 04:49 Magnesium 2.3 mg/dL (1.7-2.3) 07/31/21 04:49 Total Bilirubin 0.3 mg/dL (0.15-1.2) 07/29/21 21:57 AST 11 U/L (0-40) 07/29/21 21:57 ALT 7 U/L (0-41) 07/29/21 21:57 Alkaline Phosphatase 92 IU/L (40-130) 07/29/21 21:57 Ammonia 13 umol/L (16-60) L 07/29/21 21:57 Troponin T Baseline 22 ng/L (0-15) H 07/29/21 21:57 Troponin T 120 Minute 22.17 ng/L (0-15) H 07/29/21 23:23 Delta Troponin T 0.17 ABS# (0-10) 07/29/21 23:23 Troponin T Hi Sens 6Hr 20.78 ng/L (0-15) H 07/30/21 05:08 Troponin T Hi Sens 6Hr Delta -1.22 ng/L (0-12) L 07/30/21 05:08 Total Protein 6.4 g/dL (6.6-8.7) L 07/29/21 21:57 Albumin 3.2 g/dL (3.5-5.2) L 07/29/21 21:57 Globulin 3.2 g/dL (1.3-4.6) 07/29/21 21:57 Vitamin B12 399 pg/mL (232-1245) 07/31/21 04:49 Folate 5.7 ng/mL (4.5-32.2) 07/31/21 20:30 TSH 1.37 uIU/mL (0.27-4.20) 07/31/21 04:49 Urine Color Yellow (Yellow) 07/30/21 12:45 Urine Appearance Clear (CLEAR) 07/30/21 12:45 Urine pH 5 (5-7) 07/30/21 12:45 Ur Specific [place] 1.020 (1.005-1.030) 07/30/21 12:45 Urine Protein 3+ (Negative) H 07/30/21 12:45 Urine Glucose (UA) 4+ (Normal) H 07/30/21 12:45 Urine Ketones 2+ (Negative) H 07/30/21 12:45 Urine Blood 3+ (Negative) H 07/30/21 12:45 Urine Nitrate Negative (Negative) 07/30/21 12:45 Urine Bilirubin Neg (Negative) 07/30/21 12:45 Urine Urobilinogen Neg mg/dL (Negative) 07/30/21 12:45 Ur Leukocyte Esterase Negative (Negative) 07/30/21 12:45 Urine RBC 0-4 /hpf (0-2) H 07/30/21 12:45 Urine WBC 0-4 /hpf (0-5) H 07/30/21 12:45 Ur Squamous Epith Cells 0-4 /hpf (0-5) H 07/30/21 12:45 Amorphous Sediment Not Reportable 07/30/21 12:45 Urine Bacteria Trace /hpf (NONE) 07/30/21 12:45 Hyaline Casts 0-4 /lpf H 07/30/21 12:45 SARS-CoV-2 Ag (Rapid) Negative (Negative) 07/29/21 20:11 Vitals Last Vital Signs Temp 97.9 F 08/02/21 15:05 Pulse 84 08/02/21 15:05 Resp 18 08/02/21 15:05 BP 120/67 08/02/21 15:05 Pulse Ox 95 08/02/21 15:05 Discharge Plan Discharge Patient Disposition: Xfer [facility] Condition: Stable Prescriptions: New atorvastatin 40 mg tablet 40 mg PO QPM Qty: 90 0RF losartan 50 mg Tablet 100 mg PO DAILY Qty: 90 0RF Continued aspirin [Adult Aspirin Regimen] 81 mg tablet,delayed release (DR/EC) 81 mg PO DAILY Qty: 30 3RF Lantus U-100 Insulin 100 unit/mL solution 55 unit SUBCUT DAILY 0RF sertraline 50 mg tablet 150 mg PO DAILY 0RF ferrous sulfate 325 mg (65 mg iron) tablet,delayed release (DR/EC) 325 mg PO DAILY 0RF nitroglycerin 0.4 mg tablet, sublingual 0.4 mg sublingual Q5M PRN (Reason: chest pain) 0RF cholecalciferol (vitamin D3) 25 mcg (1,000 unit) capsule 25 mcg PO DAILY 0RF metformin 500 mg tablet extended release 24 hr 1,000 mg PO BID 0RF carvedilol 12.5 mg tablet 12.5 mg PO BID 30 Days Qty: 60 0RF Rx Instructions: must administer with a meal/food Ozempic 1 mg/dose (4 mg/3 mL) pen injector 1 mg SUBCUT Q7D 0RF Rx Instructions: SUNDAYS Discontinued losartan-hydrochlorothiazide 100-25 mg tablet 1 tab PO DAILY 0RF simvastatin 40 mg tablet 40 mg PO DAILY 0RF Discharge Orders: Discharge Order (Routine); Ordered 08/02/21 Ordered By: Jose Sanchez Referrals: [facility] [Other] STEPHANIE Del Toro, [employer] DES[employer] [Primary Care Provider] - 4-7 days (Please call Thursday to make a follow up appointment. ) Discharge Diet: Cardiac and Diabetic Discharge Activity: Increase activity as tolerated and As per PT/OT instructions Patient Instructions: Losartan (By mouth), Atorvastatin (By mouth), Hyperglycemia, Sleep Apnea (GEN), Ischemic Stroke (DC) Activity Restrictions/Additional Instructions: Continue physical therapy as tolerating. Fall precautions. Discussed with your primary doctor regarding carotid artery atherosclerosis, 50- 69% right ICA, less than 50% left ICA. Continue aspirin, cholesterol medication changed to atorvastatin for high intensity. Follow-up with your primary doctor for optimization of other risk factors of cardiovascular disease and stroke. Once recovering from acute illness, depending on goals of care discuss further assessment of 12 mm right lower lobe partially evaluated opacity in your lung incidentally seen on CT of the spine. As well as discussed additional assessment of mildly ectatic thoracic aorta to exclude aneurysm or other abnormality higher up. Discharge Attestations Time Spent in Discharge Care*: greater than 30 min Quality Metrics Clinical Quality Measures [ Cerebrovascular Accident { Contraindication to Antithrombotic: None; antithrombotic prescribed; Contraindication to Anticoagulation: Overlap treatment not indicated; Contraindication to Statin: None; Statiin prescribed;}] Coding Level of Care Code Acute Chg FW DC note Diagnoses Altered mental status R41.82 Generalized weakness R53.1 Obstructive sleep apnea G47.33 Benign essential hypertension with target blood pressure below 140/90 I10 Atherosclerotic heart disease of [place] coronary artery with other forms of a ngina pectoris I25.118 Vascular dementia F01.50 Dementia behavioral disturbance: without behavioral disturbance CVA (cerebral vascular accident) I63.9 CVA mechanism: unspecified Hyperglycemia R73.9
[2021-08-02 15:49] LABS: SARS Covid-2 Antigen Negative (Negative)
[2021-08-02] MEDS: insulin lispro 100 unit/1 mL SUBCUT (17:13)
--- NOTE | 2021-08-02 18:04 | USCV_ITS ---
Marcell Magallon Age: 66 Gender: M : 1955 Exam Date: 08/02/2021 06:12 Ordering Phys: Jose Sanchez MD Technologist: [place] [facility] [place]: Triple Bypass / Possible CVA BP: 149 / 74 HR: 87 Rhythm: Sinus Technical Quality: Adequate MEASUREMENTS (Male / Female) Normal Values 2D ECHO LV Diastolic Diameter PLAX 4.2 cm 4.2 - 5.9 / 3.9 - 5.3 cm LV Systolic Diameter PLAX 2.4 cm IVS Diastolic Thickness 1.0 cm 0.6 - 1.0 / 0.6 - 0.9 cm IVS Systolic Thickness 1.6 cm LVPW Diastolic Thickness 1.2 cm 0.6 - 1.0 / 0.6 - 0.9 cm LVPW Systolic Thickness 1.5 cm LVOT Diameter 2.1 cm LV Ejection Fraction 2D Teich 72.0 % LV Ejection Fraction MOD 2C 69.5 % LV Ejection Fraction 2C AL 68.9 % LA Diameter 3.9 cm LA Width 4.2 cm LA Height 5.3 cm RA Width 3.4 cm RA Height 4.7 cm Aorta at Sinotubular Diameter 2.9 cm M-MODE Aortic Annulus Diameter 3.6 cm LA Ao Ratio MM 1.1 MV E Point Septal Separation 1.3 cm DOPPLER AV Peak Velocity 104.0 cm/s LVOT Peak Velocity 81.0 cm/s AV Area Cont Eq vti 2.8 cm squared AV Area Cont Eq pk 2.6 cm squared MV Area PHT 5.0 cm squared Mitral E to A Ratio 0.8 MV E' Velocity 43.0 cm/s Mitral E to MV E' Ratio 10.2 Mitral E to LV E' Lateral Ratio 9.6 Mitral E to LV E' Septal Ratio 10.9 TR Peak Velocity 233.7 cm/s TR Peak Gradient 21.8 mmHg TV Peak E Velocity 111.0 cm/s Right Atrial Pressure 3.0 mmHg Pulmonary Artery Systolic Pressu 24.8 mmHg PV Peak Velocity 124.0 cm/s FINDINGS Left Ventricle Normal left ventricular size, systolic function and wall thickness. Although no diagnostic regional wall abnormalities could be identified, this possibility could not be completely excluded. Left ventricular ejection fraction is estimated at 60 %. Normal diastolic function. Abnormal septal motion. Right Ventricle Normal right ventricular size and normal systolic function. Right ventricular systolic pressure 24.8 mmHg. Right Atrium Normal right atrial size. Left Atrium Mildly increased left atrial size. Mitral Valve Mild mitral annular calcification. No mitral valve stenosis. No mitral valve regurgitation. Aortic Valve Structurally normal trileaflet aortic valve. No aortic valve stenosis. No aortic valve regurgitation. Tricuspid Valve Structurally normal tricuspid valve. Trace tricuspid valve regurgitation. Pulmonic Valve Pulmonic valve not well visualized. No pulmonary valve stenosis. No pulmonary valve regurgitation. Pericardium No pericardial effusion. Aorta Normal size aortic root and proximal ascending aorta. CONCLUSIONS 1. Normal left ventricular size, systolic function and wall thickness. Although no diagnostic regional wall abnormalities could be identified, this possibility could not be completely excluded. Left ventricular ejection fraction is estimated at 60 %. Normal diastolic function. Abnormal septal motion. 2. Normal right ventricular size and normal systolic function. 3. No significant valvular abnormality. 4. No significant change when compared to previous study dated 04/19/2020. Selma Ardon MD (Electronically Signed) Final Date: 02 August 2021 12:35 S
--- NOTE | 2021-08-02 18:04 | USCV_ITS ---
Marcell Magallon Age: 66 Gender: M : 1955 Exam Date: 08/02/2021 06:33 Ordering Phys: Jose Sanchez MD Technologist: [place] [facility] [place]: TIA VS CVA Risk Factors: Previous Vascular Surgery: Right Brachial BP: / Left Brachial BP: / Right Left Velocity (cm/s) Spectral Plaque Velocity (cm/s) Spectral Plaque Syst/Diast Broadening Syst/Diast Broadening 54.20/ 6.70 Prox CCA 54.40 / 10.10 53.40/ 8.20 Mid CCA 72.20 / 15.50 55.60/ 10.40 Hetro Distal CCA 68.40 / 13.20 Hetro 43.80/ 11.90 Hetro Prox ICA 147.50/ 27.00 Hetro 239.30/38.50 Hetro Mid ICA 101.50/ 19.20 Hetro 122.70/12.40 Hetro Distal ICA 127.50/ 23.30 123.30 ECA 205.10 4.30 ICA/CCA 2.04 Antegrade Vertebral Antegrade 55.20/ 10.90 cm/s 59.00/ 11.00 cm/s Tri Subclavian Tri 83.10 78.10 FINDINGS Comparison: none available. Diffuse bilateral scattered calcified plaque and intimal thickening throughout the common carotid arteries and extending through the bifurcation. Greater stenosis on the right. Antegrade vertebral arteries. CONCLUSIONS Right ICA stenosis 50-69%. Left ICA stenosis < 50%. Moderate carotid atherosclerosis. Dr. Claire Hennessy DO (Electronically Signed) Final Date: 02 August 2021 10:49 S
[2021-08-02 21:01] LABS: Glucose Point of Care 178 mg/dL (70-110)
[2021-08-02 21:01] LABS: Glucose Point of Care 199 mg/dL (70-110)
== END 2021-08-02 16:30 | disposition skilled nursing facility (03) ==
LOC: ER 07-30 02:20 → ER IP 07-30 07:59 → MEDSURG 07-31 19:59 → ER IP 08-05 17:57 → MEDSURG 08-05 17:57
PROVIDERS: Admitting Provider Internal Medicine; Emergency Provider Emergency Medicine; PCP Nurse Practitioner Family; Visit Provider Internal Medicine
DX: R41.82 Altered mental status, unspecified (principal); R53.1 Weakness; G47.33 Obstructive sleep apnea (adult) (pediatric); I10 Essential (primary) hypertension; I25.118 Atherosclerotic heart disease of native coronary artery with other forms of angina pectoris; I63.9 Cerebral infarction, unspecified; F01.50 Vascular dementia, unspecified severity, without behavioral disturbance, psychotic disturbance, mood disturbance, and anxiety; R73.9 Hyperglycemia, unspecified; Z95.1 Presence of aortocoronary bypass graft; Z86.73 Personal history of transient ischemic attack (TIA), and cerebral infarction without residual deficits; E86.0 Dehydration; Z91.81 History of falling; Z79.82 Long term (current) use of aspirin; Z87.891 Personal history of nicotine dependence
CPT/HCPCS: 36415; 36416; 36600; 70450; 71045; 72128; 72131; 80048; 80053; 81001; 82140; 82607; 82746; 82803; 82962; 83605; 83735; 84100; 84443; 84484; 85025; 85610; 87426; 93005; 93306; 93880; 96372; 97116; 97161; 97165; 97530; 97535; G0378; J1650; J1815 ×2; J2060; J3475; J7030; J7040

== ENCOUNTER → 2021-11-20 15:55 | Outpatient (BNVA) | payer MEDICARE, SELFPAY | PROVIDERS: PCP Nurse Practitioner Family; Visit Provider Family Medicine | DX: E11.42 Type 2 diabetes mellitus with diabetic polyneuropathy (principal); E11.40 Type 2 diabetes mellitus with diabetic neuropathy, unspecified; L60.0 Ingrowing nail | CPT/HCPCS: 83036 ==

== ENCOUNTER → 2021-12-26 09:07 | Outpatient (BNVA) | payer MEDICARE, SELFPAY | PROVIDERS: PCP Nurse Practitioner Family; Referring Provider Family Medicine; Visit Provider Podiatrist Foot & Ankle Surgery | DX: I73.9 Peripheral vascular disease, unspecified (principal); L60.3 Nail dystrophy; E11.42 Type 2 diabetes mellitus with diabetic polyneuropathy; M20.41 Other hammer toe(s) (acquired), right foot; M20.42 Other hammer toe(s) (acquired), left foot; Z79.84 Long term (current) use of oral hypoglycemic drugs | CPT/HCPCS: 11721; 99203 ==